=== PATIENT | female | born 1985 | race Caucasian/White ===

== ENCOUNTER 2019-10-19 11:59 | Outpatient (CLI) | payer OTHER, SELFPAY ==
--- NOTE | ~2019-10-19 | MR_ITS ---
EXAMINATION: MR lumbar spine wo con EXAM DATE: 10/19/2019 12:59 INDICATION: Right-sided low back pain, right hip and leg pain. TECHNIQUE: Multi-sequential, multiplanar MR images of the lumbar spine were obtained without contrast . Sagittal T1, T2, T2 fat saturation images. Axial T2 weighted images. There is no prior study for comparison. FINDINGS: There is mild disc disease L5-S1. The vertebral bodies are aligned in the AP dimension. The conus medullaris terminates at the L1/2 level and has normal signal intensity and morphology. There are no suspicious marrow signal abnormalities. Paraspinal soft tissue is unremarkable. Level by level evaluation: T12-L1: Disc does not extend beyond the endplate margin. Facet arthropathy: Mild. Neural foraminal stenosis: No stenosis. Central canal stenosis: No stenosis. L1-L2: Disc does not extend beyond the endplate margin. Facet arthropathy: Mild. Neural foraminal stenosis: No stenosis. Central canal stenosis: No stenosis. L2-L3: Disc does not extend beyond the endplate margin. Facet arthropathy: Mild. Neural foraminal stenosis: No stenosis. Central canal stenosis: No stenosis. L3-L4: There is a minimal diffuse disc bulge. Facet arthropathy: Mild to moderate. Neural foraminal stenosis: Mild right. Central canal stenosis: No stenosis. L4-L5: There is a mild diffuse disc bulge. Facet arthropathy: Mild. Neural foraminal stenosis: Mild bilateral. Central canal stenosis: Minimal. L5-S1: There is a mild diffuse disc bulge. Facet arthropathy: Mild. Neural foraminal stenosis: Mild bilateral. Central canal stenosis: Mild. IMPRESSION: 1. Mild lumbar spondylosis. Reviewed, dictated and finalized at location A. S REPRESENTATIVE PRINTING PAPER IMPRESSION: 1. Mild lumbar spondylosis.
== END 2019-10-19 12:00 ==
PROVIDERS: Visit Provider Nurse Practitioner Family
DX: M54.5 Low back pain (principal); M47.816 Spondylosis without myelopathy or radiculopathy, lumbar region
CPT/HCPCS: 72148

== ENCOUNTER → 2020-10-29 00:19 | Outpatient (CLI) | payer OTHER, SELFPAY ==
[2020-10-29 21:18] LABS: SARS-CoV-2 RNA PCR Negative
== END ==
PROVIDERS: PCP Family Medicine; Visit Provider Obstetrics & Gynecology
DX: Z01.812 Encounter for preprocedural laboratory examination (principal); Z20.822 Contact with and (suspected) exposure to COVID-19
CPT/HCPCS: C9803; U0003; U0005

== ENCOUNTER 2020-10-29 08:42 | Outpatient (CLI) | payer OTHER, SELFPAY ==
[2020-10-29 09:03] LABS: Basophils Percent Auto 0.3 % (0.2-1.2); Eosinophils Absolute Auto 0.1 K/mm3 (0-0.3); Hematocrit 39.1 % (37.0-47.0); Hemoglobin 12.8 g/dL (12.0-15.0); Immature Granulocyte Absolute 0.02 K/mm3 (0.00-0.031); Immature Granulocyte Percent A 0.3 % (0-0.5); Lymphocytes Absolute Auto 1.59 K/mm3 (0.9-3.2); Lymphocytes Percent Auto 23.5 % (18.3-44.2); Mean Corpuscular HGB Conc 32.7 g/dl (32-36); Mean Corpuscular Hemoglobin 31.3 pg (26-34); Mean Corpuscular Volume 95.6 fl (80-100); Mean Platelet Volume 9.6 fl (7.4-10.4); Monocytes Absolute Auto 0.4 K/mm3 (0.1-0.6); Monocytes Percent Auto 6.5 % (2.6-8.5); Neutrophils Absolute Auto 4.6 K/mm3 (1.3-6.7); Neutrophils Percent Auto 68.4 % (45.5-73.1); Platelet Count Result 215 k/mm3 (150-375); Red Blood Count 4.09 M/mm3 (4.2-5.4); Red Cell Distribution Width 12.2 % (11.5-14.5); White Blood Count 6.8 K/mm3 (4.5-10.0)
== END 2020-10-29 08:43 | disposition home or self-care (01) ==
PROVIDERS: PCP Family Medicine; Visit Provider Obstetrics & Gynecology
DX: Z01.818 Encounter for other preprocedural examination (principal); N85.2 Hypertrophy of uterus
CPT/HCPCS: 36415; 85025; 86850; 86900; 86901

== ENCOUNTER 2020-11-01 00:29 | Day surgery (SDC) | payer OTHER, SELFPAY ==
[2020-10-28 13:08] VITALS: BMI 29.3
--- NOTE | 2020-10-30 09:03 | PM.IMHP ---
H&P: HPI History of Present Illness Date/Time: 10/30/20 09:03 Chief Complaint: pain/bleeding Narrative: Zahida Mcmahon is a 35 year old female is admitted for robotic total vaginal hysterectomy and bilateral salpingectomy secondary to dyspareunia and dysmenorrhea which has been refractory to medical therapy. Risks and benefits reviewed including but not exclusive of , aspiration pneumonia, bleeding, transfusion, perforation to bowel, bladder, ureters, or other internal organs with need for laparotomy. She voiced understanding. She received the ACOG handout entitled hysterectomy as well as admitting handout. She had all questions answered. She asked to proceed Review of Systems Review of Systems: All systems reviewed & are unremarkable except as noted in HPI and below PMFSH Past Medical History Medical History History of anxiety History of asthma History of gastroesophageal reflux (GERD) Surgical History Surgical History History of section History of tonsillectomy History of tubal ligation Hx of cholecystectomy Family History Family History Grandparent Hypertension Family history of coronary artery disease Mother Family history of gallbladder disease Other Diabetes mellitus Family history of lung cancer Social History Social History Smoking status: Former smoker Tobacco type: cigarettes Second hand tobacco smoke exposure: No Additional smoking assessment comments: STATES 1PK/2DAYS/<10YRS QUIT 2009 Alcohol intake: current Drinks per week: 7 Substance use: never Substance use type: does not use Gender identity (if verbalized by the patient): Female Spiritual care concerns: No Meds Home Medications and Allergies Home Medications Medication Instructions Recorded Confirmed Type albuterol sulfate 90 mcg/actuation 2 puff INHALATION Q4H PRN gm 07/18/19 10/28/20 History aerosol inhaler duloxetine 60 mg capsule,delayed 60 mg PO DAILY #30 cap 07/24/20 10/28/20 Rx release Allergies Allergy/AdvReac Type Severity Reaction Status Date / Time tetanus and diphtheria AdvReac Unknown localized Verified 10/28/20 13:06 toxoids swelling reaction Exam Const: General: no acute distress Eyes: General: appearance normal, both eyes and all related structures Neck: Neck: supple and no JVD Thyroid: thyroid normal Resp: Effort & Inspection: normal respiratory effort Auscultation: clear to auscultation bilaterally Cardio: Rate: regular rate Rhythm: regular rhythm GI: Inspection: non-distended GI Palp: Yes Soft to palpation, No Tenderness to palpation present (GI) and No Guarding due to palpation present (GI) Auscultation: normal bowel sounds : General: Yes bladder normal to inspection External Female Exam: normal external appearance Speculum Exam - Vagina: normal appearance of the vagina Speculum Exam - Cervix: normal appearance of the cervix Bimanual exam- vagina & uterus: enlarged and Uterine tenderness Skin: General skin exam: no rashes or lesions noted Extrem: General: normal to inspection and no edema Psych: Mental Status: mental status grossly normal Affect: normal affect Assessment and Plan Additional Plan impression: Enlarged uterus and pelvic pain with dyspareunia Plan: Robotic total vaginal hysterectomy and bilateral salpingectomy
[2020-11-01] VITALS (12 sets, daily range): BP systolic 99–121; BP diastolic 56–80; PULSE 60–115; RESP 12–18; TEMP 36.1–36.7; O2SAT 94–100
[2020-11-01] MEDS: CALCIUM CARBONATE (TUMS) 500 MG (200 MG ELEMENTAL) (06:20)
[2020-11-01] MEDS: ACETAMINOPHEN 500 MG TABLET 1000 MG PO (06:40)
[2020-11-01] MEDS: KETOROLAC 15 MG/ML VIAL (*BKC) IV PUSH (06:40)
--- NOTE | 2020-11-01 06:46 | WPDHPUPDATE1 ---
History and Physical Update Update Date/Time: 11/01/20 06:46 History and Physical has been reviewed, including an updated exam of the patient. There are NO changes in the patient's condition. Risks, benefits, and alternatives have been discussed and questions answered. Patient agrees to proceed with procedure.
[2020-11-01] MEDS: LACTATED RINGERS 1,000 ML 30 ML IV CONT ×2 (06:48→08:46)
[2020-11-01] MEDS: SCOPOLAMINE 1.5 MG PATCH TRANSDERM (07:16)
[2020-11-01] MEDS: ceFAZolin 2 GM/D5W 50 ML 2 GM/50 ML BAG IVPB (07:21)
--- NOTE | 2020-11-01 08:30 | PM.PROC ---
Procedure Note - Detailed Date of procedure: 11/01/20 Pre-op diagnosis: Irregular Bleeding, Enlarged Uterus Surgeon: Fahad Santa MD Postop diagnosis: Irregular bleeding/enlarged uterus Procedure: Robotic total vaginal hysterectomy and bilateral salpingectomy EBL: 25cc Anesthesia: General endotracheal Findings: Enlarged irregular uterus. Normal-appearing ovaries bilaterally. Tubes status post tubal ligation. Complications: None Description of procedure: The patient was prepped and draped in the normal sterile fashion placed in the dorsal lithotomy position. Under excellent general endotracheal anesthesia weighted speculum was placed in posterior fornix of vagina. Anterior lip of the cervix was grasped with a single-tooth tenaculum. Uterus sounded to 12cm. The 10. ABDIAS and the 3. And a half cold cup were then placed on the cervix and the uterus. A 16 Maldivian catheter was placed in the bladder and drained of clear urine. The weighted speculum was removed and the gloves were changed. A supraumbilical incision made in the Veress needle passed in the abdomen. The abdomen was filled with CO2 gas [id number]. The 8mm trocar advanced in the abdomen. The downside visualized and no injury seen. Patient placed in Trendelenburg and right and left lateral quadrant incisions made. 8mm trocars were advanced under direct visualization assuring injury. A right upper quadrant incision made the 8mm trocar advanced under direct visualization assuring injury. The robot was docked. Attention was turned to the tariff counsel. The left round ligament was grasped, burned, cut. Anteriorly the bladder was reflected caudally by sharply dissecting the peritoneum over the cervix and uterus and reflecting the bladder caudally to the opposite round ligament which was clamped, burned, cut. Next the left fallopian tube was sharply dissected using monopolar cautery until it reached the base of its entrance in the uterus this was repeated to remove the right fallopian tube. The left utero-ovarian ligament was skeletonized to conserve the left ovary clamped, burned, cut and brought to the level of the previously cut round ligament. Conserving the right ovary the utero-ovarian ligament was clamped, burned, cut and brought to the level of the previously cut round ligament. The left cardinal and broad ligaments were then serially skeletonized down the lateral edge of the uterus clamping burning cutting until the uterine vessels could be seen. These were individually clamped, burned, cut and noted to be large and tortuous. In like fashion the cardinal and broad ligaments on the right were serially skeletonized. These were clamped, burned, cut and brought down the lateral edge of the uterus until the uterine vessels on the right could be seen. These were then individually clamped, burned, cut. Blanching the uterus was seen in a colpotomy incision was made. Cervix uterus and tubes removed through the vagina. The vagina closed with continuous running 0V lock from lateral edge to lateral edge back to the midline. Irrigation undertaken to clear and the raw spaced sprinkled with hematuria. Blood loss estimated at25cc and all pedicles appeared dry. The robot was undocked. The gas removed from the abdomen. The trocar sites removed and the incisions closed with 4 O Monocryl and glue. The patient was awakened. All sponge, needle, instrument counts were correct. There were no immediate complications
[2020-11-01] MEDS: fentaNYL CITRATE INJ (*CRX) 100 MCG/2 ML VIAL 25 MCG IV PUSH ×8 (08:57→10:29)
[2020-11-01] MEDS: HYDROmorphone HCL INJ (*CRX) 1 MG/ML SYR 0.5 MG IV PUSH ×6 (09:33→10:23)
--- NOTE | 2020-11-01 10:44 | PC.NURSE ---
This patient, Zahida Mcmahon, was received from PACU on 11/01/20 at 1044. Patient/family oriented to unit policies and routines
[2020-11-01] MEDS: DEXTROSE 5%/LACTATED RINGERS 1,000 ML 125 ML IV CONT ×2 (11:09→19:09)
[2020-11-01] MEDS: MORPHINE SULFATE (*CRX) 4 MG/ML INJ IV PUSH ×2 (11:09→19:10)
[2020-11-01] MEDS: ONDANSETRON INJ 4 MG/2 ML VIAL IV PUSH ×2 (11:44→19:09)
[2020-11-01] MEDS: KETOROLAC 30 MG/ML VIAL (*BKC) IV PUSH (15:47)
[2020-11-01] MEDS: TEMAZEPAM (*CRX) 15 MG CAPSULE PO (19:34)
[2020-11-01] MEDS: SIMETHICONE 80 MG TAB.CHEW PO (19:56)
[2020-11-02] MEDS: KETOROLAC 30 MG/ML VIAL (*BKC) IV PUSH (01:12)
[2020-11-02 01:15] VITALS: BP 95/55; PULSE 83; RESP 18; TEMP 36.1; O2SAT 100
[2020-11-02] MEDS: diphenhydrAMINE HCl CAP 25 MG CAPSULE PO ×2 (01:34→09:12)
[2020-11-02 05:00] VITALS: BP 88/50; PULSE 90; RESP 18; TEMP 36.3; O2SAT 100
[2020-11-02 05:12] LABS: Basophils Percent Auto 0.2 % (0.2-1.2); Eosinophils Percent Auto 0.2 % (0-4.4); Hemoglobin 11.3 g/dL (12.0-15.0); Immature Granulocyte Absolute 0.06 K/mm3 (0.00-0.031); Immature Granulocyte Percent A 0.5 % (0-0.5); Lymphocytes Absolute Auto 2.13 K/mm3 (0.9-3.2); Lymphocytes Percent Auto 17.5 % (18.3-44.2); Mean Corpuscular HGB Conc 32.3 g/dl (32-36); Mean Corpuscular Hemoglobin 30.2 pg (26-34); Mean Corpuscular Volume 93.6 fl (80-100); Mean Platelet Volume 9.7 fl (7.4-10.4); Monocytes Absolute Auto 0.6 K/mm3 (0.1-0.6); Monocytes Percent Auto 4.5 % (2.6-8.5); Neutrophils Absolute Auto 9.4 K/mm3 (1.3-6.7); Neutrophils Percent Auto 77.1 % (45.5-73.1); Platelet Count Result 177 k/mm3 (150-375); Red Blood Count 3.74 M/mm3 (4.2-5.4); Red Cell Distribution Width 11.9 % (11.5-14.5); White Blood Count 12.2 K/mm3 (4.5-10.0)
[2020-11-02 06:30] VITALS: BP 95/48; PULSE 70; RESP 16; TEMP 36.3; O2SAT 100
[2020-11-02] MEDS: SIMETHICONE 80 MG TAB.CHEW PO (06:37)
[2020-11-02] MEDS: IBUPROFEN 600 MG TABLET PO (06:37)
[2020-11-02] MEDS: DOCUSATE SODIUM 100 MG CAPSULE PO (06:37)
[2020-11-02] MEDS: ENOXAPARIN 40 MG/0.4 ML SYRINGE SUB-Q (06:37)
[2020-11-02] MEDS: HYDROcodone/acetaminophen (*CRX) 10-325 MG TABLET 1 TAB PO (06:38)
--- NOTE | 2020-11-02 07:18 | P.PNOB_ITS ---
OB - PN: Subj Subjective Date/time seen: 11/02/20 07:18 Patient comments: no complaints and pain well controlled OB - PN: Obj Data Labs CBC & Chem 7: 11/02/20 05:04 Labs: Laboratory Results - last 24 hr 11/02/20 05:04 WBC 12.2 H RBC 3.74 L Hgb 11.3 L Hct 35.0 L MCV 93.6 MCH 30.2 MCHC 32.3 RDW 11.9 Plt Count 177 MPV 9.7 Immature Gran % (Auto) 0.5 Neut % (Auto) 77.1 H Lymph % (Auto) 17.5 L [place] % (Auto) 4.5 Eos % (Auto) 0.2 Baso % (Auto) 0.2 Lymph # (Auto) 2.13 [place] # (Auto) 0.6 Eos # (Auto) 0.0 Baso # (Auto) 0.0 Abs Immat Gran (auto) 0.06 H Absolute Neuts (auto) 9.4 H Absolute Nucleated RBC 0.0 Nucleated RBC % 0.0 OB - PN A/P Plan day: 1 Plan: discharge home and follow up 6 weeks (2 weeks) Time Spent With Patient Time: Total time spent is greater than 50% in coordination of care (as documented) at patient's floor/unit and/or counseling patient: Time with patient: less than 15 minutes Review of Systems Review of Systems: All systems reviewed & are unremarkable except as noted in HPI and below Exam Const: General: no acute distress Eyes: General: appearance normal, both eyes and all related structures Neck: Neck: supple and no JVD Thyroid: thyroid normal Resp: Effort & Inspection: normal respiratory effort Auscultation: clear to auscultation bilaterally Cardio: Rate: regular rate Rhythm: regular rhythm GI: Inspection: normal to inspection and incision (all cdi) : General: Yes bladder normal to palpation External Female Exam: normal external appearance Speculum Exam - Vagina: normal vaginal discharge and No vaginal bleeding Speculum Exam - Cervix: nontender Bimanual exam- vagina & uterus: bladder normal to palpation and No Cervical tenderness present OB/external & speculum: No vaginal bleeding Skin: General skin exam: no rashes or lesions noted Extrem: General: normal to inspection and no edema Psych: Mental Status: mental status grossly normal Affect: normal affect
--- NOTE | 2020-11-02 07:19 | PM.DS ---
DS: Admitting Diagnosis Admitting Diagnosis Admitting Diagnosis: enlarged uterus/pain/bleeding DS: Summary Hospital Course Hospital Course: The patient was admitted for robotic total vaginal hysterectomy and bilateral salpingectomy. Her hospital course was unremarkable. She remained afebrile. She was up, voiding without difficulty, ambulating, eating, and generally without complaints. Time Spent with Patient Time attestation: Total time spent providing and/or coordinating discharge services: Exam Const: General: no acute distress Eyes: General: appearance normal, both eyes and all related structures Neck: Neck: supple and no JVD Thyroid: thyroid normal Resp: Effort & Inspection: normal respiratory effort Auscultation: clear to auscultation bilaterally Cardio: Rate: regular rate Rhythm: regular rhythm GI: Inspection: non-distended GI Palp: Yes Soft to palpation, No Tenderness to palpation present (GI) and No Guarding due to palpation present (GI) Auscultation: normal bowel sounds : General: Yes bladder normal to palpation External Female Exam: normal external appearance Speculum Exam - Vagina: normal vaginal discharge and No vaginal bleeding Speculum Exam - Cervix: nontender Bimanual exam- vagina & uterus: bladder normal to palpation and No Cervical tenderness present OB/external & speculum: No vaginal bleeding Skin: General skin exam: no rashes or lesions noted Extrem: General: normal to inspection and no edema Psych: Mental Status: mental status grossly normal Affect: normal affect DS: Data Data Completed and Pending Pending studies at discharge: Pending at discharge 11/01/20 08:13 Surgical [PTH] Routine Labs on day of discharge: Labs from last 24 hours 11/02/20 05:04 WBC 12.2 H RBC 3.74 L Hgb 11.3 L Hct 35.0 L MCV 93.6 MCH 30.2 MCHC 32.3 RDW 11.9 Plt Count 177 MPV 9.7 Immature Gran % (Auto) 0.5 Neut % (Auto) 77.1 H Lymph % (Auto) 17.5 L [place] % (Auto) 4.5 Eos % (Auto) 0.2 Baso % (Auto) 0.2 Lymph # (Auto) 2.13 [place] # (Auto) 0.6 Eos # (Auto) 0.0 Baso # (Auto) 0.0 Abs Immat Gran (auto) 0.06 H Absolute Neuts (auto) 9.4 H Absolute Nucleated RBC 0.0 Nucleated RBC % 0.0 Discharge Plan Discharge Patient Disposition: Home, Self-Care Stand Alone Forms: General Discharge Instructions Follow-up/Referrals: Fahad Santa MD [Physician] - Discharge Medications: New hydrocodone-acetaminophen 5-300 mg tablet 1 tablet PO Q6H PRN (Reason: pain) Qty: 30 RF: 0 Continued albuterol sulfate [Ventolin HFA] 90 mcg/actuation HFA aerosol inhaler 2 puff INHALATION Q4H PRN (Reason: Shortness Of Breath Or Wheezing) RF: 0 duloxetine [Cymbalta] 60 mg capsule,delayed release(DR/EC) 60 mg PO DAILY Qty: 30 RF: 3
[2020-11-02] MEDS: ALBUTEROL SULFATE (*SP) AEROSOL 1 PUFF 2 PUFF INHALATION (08:30)
--- NOTE | 2020-11-02 10:19 | P.PNAN_ITS ---
Anes - Prog Note Post-Op Date/Time: 11/02/20 10:19 Cardiovascular status: normal Respiratory status: normal Airway patency: baseline Mental status: baseline Post-Op hydration status: normal Vital Signs: Last Vital Signs Temp 36.3 C L 11/02/20 06:30 Pulse 70 11/02/20 06:30 Resp 16 11/02/20 06:30 BP 95/48 L 11/02/20 06:30 Pulse Ox 100 11/02/20 06:30 Pain Score (VAS): 0 I/O: Intake & Output 11/01/20 11/02/20 11/02/20 23:59 07:59 15:59 Intake Total 1440 1600 Output Total 400 2300 400 Balance 1040 -700 -400 Laboratory Tests 11/02/20 05:04 11/02/20 05:04 WBC 12.2 H RBC 3.74 L Hgb 11.3 L Hct 35.0 L MCV 93.6 MCH 30.2 MCHC 32.3 RDW 11.9 Plt Count 177 MPV 9.7 Immature Gran % (Auto) 0.5 Neut % (Auto) 77.1 H Lymph % (Auto) 17.5 L [place] % (Auto) 4.5 Eos % (Auto) 0.2 Baso % (Auto) 0.2 Lymph # (Auto) 2.13 [place] # (Auto) 0.6 Eos # (Auto) 0.0 Baso # (Auto) 0.0 Abs Immat Gran (auto) 0.06 H Absolute Neuts (auto) 9.4 H Absolute Nucleated RBC 0.0 Nucleated RBC % 0.0 Post-procedural complaints: none Patient Feedback: Patient satisfied with anesthetic care.
== END 2020-11-02 10:20 | disposition home or self-care (01) ==
LOC: ANHSURGERY 07:52 → ANHOB2 10:52
PROVIDERS: PCP Family Medicine; Visit Provider Obstetrics & Gynecology
PROC: (CPT 58552; principal; 2020-11-01 07:30)
DX: N80.0 Endometriosis of uterus (principal); N83.8 Other noninflammatory disorders of ovary, fallopian tube and broad ligament; N93.9 Abnormal uterine and vaginal bleeding, unspecified; F41.9 Anxiety disorder, unspecified; J45.909 Unspecified asthma, uncomplicated; K21.9 Gastro-esophageal reflux disease without esophagitis; R10.2 Pelvic and perineal pain; Z79.51 Long term (current) use of inhaled steroids; N94.10 Unspecified dyspareunia; Z87.891 Personal history of nicotine dependence
CPT/HCPCS: 58552; S2900; 36415; 85025; 86850; 86900; 86901; 88307; 94640; 99199; A9270; C9803; J0690; J1100; J1170; J1650; J1885; J2250; J2270; J2405; J2704; J2710; J3010; J7030; J7120; J7121; U0003; U0005

== ENCOUNTER 2020-12-26 15:46 | Outpatient (CLI) | payer OTHER, SELFPAY | END 2020-12-26 15:47 | disposition home or self-care (01) | LOC: ANHCOVIDVC 15:47 | PROVIDERS: PCP Family Medicine | DX: Z23 Encounter for immunization (principal) | CPT/HCPCS: 0001A; 91300 ==

== ENCOUNTER 2021-01-16 15:46 | Outpatient (CLI) | payer OTHER, SELFPAY | END 2021-01-16 15:47 | disposition home or self-care (01) | LOC: ANHCOVIDVC 15:46 | PROVIDERS: PCP Family Medicine | DX: Z23 Encounter for immunization (principal) | CPT/HCPCS: 0002A; 91300 ==

== ENCOUNTER 2023-06-23 08:35 | Outpatient (CLI) | payer OTHER, SELFPAY ==
[2023-06-23 09:12] LABS: Anion Gap 4 mmol/L (8-16); Blood Urea Nitrogen 12 mg/dL (7-17); Calcium 8.6 mg/dL (8.4-10.2); Carbon Dioxide 28 mmol/L (22-30); Chloride 102 mmol/L (98-107); Cholesterol 180 mg/dL (0-200); Estimated Glomerular Filt Rate > 60; Glucose 92 mg/dL (65-110); HDL Direct 60 mg/dL; Potassium 4.3 mmol/L (3.4-5.0); Sodium 134 mmol/L (137-145); Triglycerides 61 mg/dL (<150)
[2023-06-23 09:22] LABS: LDL Cholesterol Direct 96 mg/dL
== END 2023-06-23 08:36 | disposition home or self-care (01) ==
LOC: ANHLAB 08:36
PROVIDERS: PCP Family Medicine; Visit Provider Nurse Practitioner Family
DX: Z13.220 Encounter for screening for lipoid disorders (principal); F41.9 Anxiety disorder, unspecified; K58.9 Irritable bowel syndrome, unspecified
CPT/HCPCS: 36415; 80048; 80061; 84443

== ENCOUNTER 2023-11-25 10:38 | Emergency (ER) | payer OTHER, SELFPAY ==
[2023-11-25 11:29] VITALS: BP 121/81; PULSE 72; RESP 14; TEMP 36.4; O2SAT 100
--- NOTE | 2023-11-25 12:23 | ED.ABDPAIN ---
HPI - Abdominal Pain General Chief Complaint: Abdominal Pain <Dilan Huynh APRN - Last Filed: 11/25/23 12:36> Stated Complaint: ABDOMINAL PAIN SINCE 929 HX IBS <Dilan Huynh APRN - Last Filed: 11/25/23 12:36> Time Seen by Provider: 11/25/23 12:23 <Dilan Huynh APRN - Last Filed: 11/25/23 12:36> Focused HPI: Zahida is a 38-year-old female patient presenting to the emergency room today with complaints sharp/stabbing pain of mid/lower abdominal and is radiating into her groin. She reports that she does have a history of some IBS and believe she is having a severe IBS flare. States the IBS is mixed. Last colonoscopy was about 10 years ago and was normal at that time. Denies any blood in her stool. Denies any fever, chills, nausea, vomiting, or urinary symptoms. She reports she is pain-free at this time but the pain comes and goes in waves and rates the pain over a 10. Last bowel movement was yesterday-no blood in her stool. Denies any history kidney stones. History of hemorrhoids. surgical history-partial hysterectomy and cholecystectomy General: Well-developed, well nourished, in no apparent distress. Head: Normocephalic, atraumatic. Cardio: Regular rate and rhythm, s1 and s2 normal, no murmur appreciated. Resp: Clear to auscultation bilaterally, no rhonchi, rales, wheezing or rubs. Abdomen: Soft, pliable, bowel sounds present in all quadrants, tender to palpation over the mid/lower abdomen, no organomegly, no CVAT tenderness. Patient screened in triage and initial orders placed. Additional care and disposition to be based upon diagnostic testing and treatment. <Dilan Huynh APRN - Last Filed: 11/25/23 12:36> Source: patient <Dilan Huynh APRN - Last Filed: 11/25/23 12:36> Mode of arrival: ambulatory <Dilan Huynh APRN - Last Filed: 11/25/23 12:36> Limitations: no limitations <Dilan Huynh APRN - Last Filed: 11/25/23 12:36> History of Present Illness HPI narrative: Patient is a 38-year-old female with history of IBS here with abdominal pain. 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 She states that it felt similar to her prior episodes of IBS. She notes that it was severe, cramping, sharp, nonradiating and located in her lower abdomen. She attempted her dicyclomine which did not help her pain as well as a heating pad. Given her inability to help her symptoms on her own she came into the emergency department for evaluation. Since arrival to the ER her pain is significantly improved. She has intermittent diarrhea and constipation with her IBS, did have a bowel movement today which was firm. She continues to pass flatulence. No fever, chills. No urinary symptoms. Last colonoscopy was about 10 years ago and normal. <Cira Siddiqi MD - Last Filed: 11/25/23 17:55> Related Data Allergies/Adverse Reactions: Allergies Allergy/AdvReac Type Severity Reaction Status Date / Time tetanus and diphtheria AdvReac Unknown localized Verified 11/25/23 11:31 toxoids swelling reaction <Dilan Huynh APRN - Last Filed: 11/25/23 12:36> Review of Systems Review of Systems: All systems reviewed & are unremarkable except as noted in HPI and below <Cira Siddiqi MD - Last Filed: 11/25/23 17:55> PMFSH Past Medical History Medical History: Medical History BMI 25.0-25.9,adult BMI 26.0-26.9,adult BMI 29.0-29.9,adult History of anxiety History of asthma History of gastroesophageal reflux (GERD) Obesity (BMI 30.0-34.9) <Dilan Huynh APRN - Last Filed: 11/25/23 12:36> Surgical History Surgical History: Surgical History History of section History of tonsillectomy History of tubal ligation Hx of cholec
[2023-11-25 13:02] LABS: Alanine Aminotransferase 17 U/L (6-35); Albumin Level 4.6 g/dL (3.5-5.1); Alkaline Phosphatase 57 U/L (38-126); Anion Gap 5 mmol/L (8-16); Aspartate Amino Transferase 21 U/L (14-36); Bilirubin,Total 0.7 mg/dL (0.2-1.3); Blood Urea Nitrogen 15 mg/dL (7-17); Calcium 9.4 mg/dL (8.4-10.2); Carbon Dioxide 25 mmol/L (22-30); Chloride 105 mmol/L (98-107); Estimated CRCL calculation 96 ml/min; Estimated Glomerular Filt Rate > 60; Glucose 77 mg/dL (65-110); Lipase 62 U/L (23-300); Potassium 3.8 mmol/L (3.4-5.0); Sodium 135 mmol/L (137-145)
[2023-11-25 13:07] LABS: Basophils Percent Auto 0.4 % (0.2-1.2); Eosinophils Absolute Auto 0.1 K/mm3 (0-0.3); Eosinophils Percent Auto 0.7 % (0-4.4); Hematocrit 41.5 % (37.0-47.0); Hemoglobin 13.5 g/dL (12.0-15.0); Immature Granulocyte Absolute 0.03 K/mm3 (0.00-0.031); Immature Granulocyte Percent A 0.4 % (0-0.5); Lymphocytes Absolute Auto 2.06 K/mm3 (0.9-3.2); Lymphocytes Percent Auto 24.2 % (18.3-44.2); Mean Corpuscular HGB Conc 32.5 g/dl (32-36); Mean Corpuscular Hemoglobin 31.5 pg (26-34); Mean Platelet Volume 9.9 fl (7.4-10.4); Monocytes Absolute Auto 0.3 K/mm3 (0.1-0.6); Monocytes Percent Auto 3.8 % (2.6-8.5); Neutrophils Percent Auto 70.5 % (45.5-73.1); Platelet Count Result 206 k/mm3 (150-375); Red Blood Count 4.28 M/mm3 (4.2-5.4); Red Cell Distribution Width 11.9 % (11.5-14.5); White Blood Count 8.5 K/mm3 (4.5-10.0)
[2023-11-25 15:36] LABS: Appearance Urine Clear (Clear); Bilirubin Urine Negative (Negative); Blood Urine Negative (Negative); Color Urine Yellow (Yellow); Glucose Urine UA Negative (Negative); Ketones Urine 1+ mg/dL (Negative); Leukocyte Esterase Ur Negative LEU/UL (Negative); Nitrate Urine Negative (Negative); Protein Urine Negative (Negative); Specific Grav Ur 1.017 (1.001-1.035); Urobilinogen Urine 0.2 mg/dL (<2.0); pH Urine 5.5 (5.0-9.0)
[2023-11-25 15:43] LABS: Add Urine Microscopic? NO
[2023-11-25 15:49] VITALS: BP 115/64; PULSE 76; RESP 18; TEMP 36.6; O2SAT 100
--- NOTE | 2023-11-25 17:02 | PC.NURSE ---
Pt has had hysterectomy
[2023-11-25] MEDS: ONDANSETRON HCL ODT 4 MG TABLET PO (17:54)
[2023-11-25 18:10] VITALS: BP 120/80; PULSE 80; RESP 18; TEMP 36.4; O2SAT 100
== END 2023-11-25 18:12 | disposition home or self-care (01) ==
PROVIDERS: Nurse Practitioner Family; Emergency Provider Student in an Organized Health Care Education/Training Program; PCP Family Medicine
DX: R10.30 Lower abdominal pain, unspecified (principal); J45.909 Unspecified asthma, uncomplicated; K21.9 Gastro-esophageal reflux disease without esophagitis; E66.9 Obesity, unspecified; Z68.27 Body mass index [BMI] 27.0-27.9, adult; Z87.891 Personal history of nicotine dependence; Z90.49 Acquired absence of other specified parts of digestive tract
CPT/HCPCS: 36415; 80053; 83690; 85025; 99283; A9270

== ENCOUNTER 2024-02-06 00:16 | Emergency (ER) | payer OTHER, SELFPAY ==
[2024-02-06] VITALS (7 sets, daily range): BP systolic 121–127; BP diastolic 68–78; PULSE 88–115; RESP 10–37; TEMP 36.6; O2SAT 99–100
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
--- NOTE | 2024-02-06 00:50 | ECG_ITS ---
SEE SCANNED COPY FOR CONFIRMED REPORT MTDD
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
[2024-02-06] MEDS: KETOROLAC 30 MG/ML VIAL (*BKC) 15 MG IM (02:36)
[2024-02-06] MEDS: methocarbamoL 750 MG TABLET PO (02:36)
[2024-02-06] MEDS: ACETAMINOPHEN 500 MG TABLET 1000 MG PO (02:36)
== END 2024-02-06 04:12 | disposition home or self-care (01) ==
PROVIDERS: Emergency Provider Student in an Organized Health Care Education/Training Program; PCP Family Medicine
DX: S16.1XXA Strain of muscle, fascia and tendon at neck level, initial encounter (principal); R00.0 Tachycardia, unspecified; F41.9 Anxiety disorder, unspecified; J45.909 Unspecified asthma, uncomplicated; K21.9 Gastro-esophageal reflux disease without esophagitis; W06.XXXA Fall from bed, initial encounter
CPT/HCPCS: 70450; 72125; 81025; 93005; 96372; 99284; A9270; J1885

== ENCOUNTER 2024-05-03 06:52 | Emergency (ER) | payer OTHER, SELFPAY ==
--- NOTE | ~2024-05-03 | XR_ITS ---
EXAMINATION: XR chest 1V DATE: 05/03/2024 07:59 INDICATION: Chest pain. Shortness of breath. TECHNIQUE: A single frontal view of the chest was obtained. COMPARISON: Chest single view 02/26/2021 FINDINGS: There is no pneumonia, pleural effusion, or pneumothorax. The heart is normal. IMPRESSION: 1. No acute cardiopulmonary disease. Reviewed, dictated and finalized at location A.
[2024-05-03 06:59] VITALS: BP 127/80; PULSE 77; RESP 12; TEMP 36.7; O2SAT 100
--- NOTE | 2024-05-03 07:12 | ED.ANXIETY ---
HPI - Anxiety General Chief Complaint: Anxiety Stated Complaint: under a lot of stress, hand feet tingling,dizzy,cp Time Seen by Provider: 05/03/24 07:00 Source: patient and family Mode of arrival: ambulatory Limitations: no limitations History of Present Illness HPI narrative: Patient presents with multiple complaints. She is concerned it is a worsening of her underlying anxiety. She has had a history of anxiety and depression for several years. Her anxiety medications are Ativan and Vibryyd which are prescribed through her PCP's office (Dr Lantigua's STEAMFITTER APPRENTICE/PA, Cherise). She lives with family but they do not have symptoms. Her symptoms have been going on for 3 or 4 weeks. They have been noted in her bilateral hands where she will wake up and feel like they are numb it is not always the same hand. She does have a narrowing of her field of vision sometimes when this happens. She has been under stress with her job. She has an occasional cough but she attributes this to asthma for which she uses an albuterol inhaler p.r.n.. No fevers. She has been experiencing chest pain described as a tightness particularly along the upper aspect of her chest. She also has a headache. She has nausea and had an episode of vomiting this morning. She finds it hard to calm down. She states her symptoms are not associated shortness of breath. She has some blue discoloration around her left eye but denies any trauma rest at or injury rather stating that this is a chronic baseline discoloration of her skin. She notes her legs feel heavy. Related Data Allergies Allergy/AdvReac Type Severity Reaction Status Date / Time tetanus and diphtheria AdvReac Unknown localized Verified 05/03/24 07:05 toxoids swelling reaction PMFSH Past Medical History Medical History Anxiety Brain fog Depression Encounter for screening for lipid disorder Fatigue History of asthma History of gastroesophageal reflux (GERD) Surgical History Surgical History History of section History of tonsillectomy History of tubal ligation Hx of cholecystectomy Family History Family History Grandparent Hypertension Family history of coronary artery disease Mother Family history of gallbladder disease Father No problems noted. Sibling No problems noted. Other Diabetes mellitus Family history of lung cancer Social History Social History Smoking status: Former smoker Tobacco type: cigarettes Second hand tobacco smoke exposure: No Additional smoking assessment comments: STATES 1PK/2DAYS/<10YRS QUIT 2009 Alcohol intake: current Drinks per week: 7 Substance use: never Substance use type: does not use Lack of Transportation: No Lack of Food: Never True Current Housing: I Have Housing Concerned About Future Housing: No Difficulty Paying Gas/Electric Bills: No Difficulty Paying for Meds: No Currently Unemployed: No Education: Bachelor's Degree Difficulty w/ Childcare or Family Care: No Living arrangements: with family Additional living arrangements comments: , daughter, and son Occupation/Education: occupation Additional occupation/education comments: [employer] Gender identity (if verbalized by the patient): Female Spiritual care concerns: No Exam Narrative: GENERAL: Well-appearing, well-nourished, and in no acute distress. HEAD: Normocephalic, atraumatic. EYES: Non injected, non icteric. Faint bluish discoloration are round left periorbital area. ENT: Nares clear, no rhinorrhea or epistaxis. NECK: Supple. CHEST: Speaking in full sentences. No respiratory distress. Lungs clear to auscultation bilaterally without wheezes, crackles. HEART: Regular r
--- NOTE | 2024-05-03 07:13 | ECG_ITS ---
Test Date: 2024-05-03 07:41:47 Measurements Intervals [place] Rate: 76 P: 26 MI: 116 QRS: 62 QRSD: 82 T: 41 QT: 391 QTc: 440 Interpretive Statements SINUS RHYTHM WITH SHORT MI INTERVAL No previous ECG available for comparison Electronically Signed On 05-03-2024 16:02:48 CDT by Tal Dozier M.D.
[2024-05-03] MEDS: ACETAMINOPHEN 500 MG TABLET 1000 MG PO (07:39)
[2024-05-03] MEDS: ONDANSETRON HCL ODT 4 MG TABLET PO (07:39)
[2024-05-03 07:56] LABS: Basophils Percent Auto 0.5 % (0.2-1.2); Eosinophils Absolute Auto 0.1 K/mm3 (0-0.3); Eosinophils Percent Auto 1.1 % (0-4.4); Hematocrit 38.7 % (37.0-47.0); Hemoglobin 12.8 g/dL (12.0-15.0); Immature Granulocyte Absolute 0.01 K/mm3 (0.00-0.031); Immature Granulocyte Percent A 0.2 % (0-0.5); Lymphocytes Absolute Auto 1.44 K/mm3 (0.9-3.2); Mean Corpuscular HGB Conc 33.1 g/dl (32-36); Mean Corpuscular Hemoglobin 32.3 pg (26-34); Mean Corpuscular Volume 97.7 fl (80-100); Monocytes Absolute Auto 0.4 K/mm3 (0.1-0.6); Monocytes Percent Auto 5.8 % (2.6-8.5); Neutrophils Absolute Auto 4.3 K/mm3 (1.3-6.7); Neutrophils Percent Auto 69.4 % (45.5-73.1); Platelet Count Result 195 k/mm3 (150-375); Red Blood Count 3.96 M/mm3 (4.2-5.4); Red Cell Distribution Width 12.4 % (11.5-14.5); White Blood Count 6.3 K/mm3 (4.5-10.0)
[2024-05-03 08:06] LABS: Alanine Aminotransferase 16 U/L (6-35); Albumin Level 4.2 g/dL (3.5-5.1); Alkaline Phosphatase 65 U/L (38-126); Anion Gap 7 mmol/L (4-12); Aspartate Amino Transferase 22 U/L (14-36); Bilirubin,Total 0.7 mg/dL (0.2-1.3); Blood Urea Nitrogen 14 mg/dL (7-17); Calcium 8.8 mg/dL (8.4-10.2); Carbon Dioxide 28 mmol/L (22-30); Chloride 101 mmol/L (98-107); Creatine Kinase 36 U/L (30-135); Estimated CRCL calculation 74 ml/min; Estimated Glomerular Filt Rate > 60; Glucose 97 mg/dL (65-110); Potassium 4.1 mmol/L (3.4-5.0); Sodium 136 mmol/L (137-145)
--- NOTE | 2024-05-03 08:06 | PC.NURSE ---
per request of EDP provider, took pt to XRAY alone to ask and make sure pt is safe at home and if there is anything she would like to talk about. pt states she feels safe at home and no other concerns she would like to speak about.
[2024-05-03 08:12] VITALS: BP 115/70; PULSE 75; RESP 12; O2SAT 100
[2024-05-03 08:23] LABS: Influenza A QL RT-PCR Negative (Negative); Influenza B QL RT-PCR Negative (Negative); RSV RNA, RT-PCR Negative (Negative); SARS-CoV-2 RNA PCR Negative (Negative)
[2024-05-03] MEDS: KETOROLAC 30 MG/ML VIAL (*BKC) 15 MG IM (08:49)
[2024-05-03] MEDS: diphenhydrAMINE HCl CAP 25 MG CAPSULE PO (08:49)
[2024-05-03] MEDS: PROCHLORPERAZINE MALEATE 5 MG TABLET PO (08:55)
[2024-05-03 09:24] VITALS: BP 108/70; PULSE 80; RESP 18; O2SAT 100
[2024-05-03 09:26] LABS: Amphetamine Screen Urine Negative (Negative); Barbiturate Screen Urine Negative (Negative); Benzodiazepines Screen Urine Negative (Negative); Cannabinoid Screen Urine Negative (Negative); Cocaine Screen Urine Negative (Negative); Methadone Screen Urine Negative (Negative); Opiate Screen Urine Negative (Negative); Phencyclidine Screen Urine Negative (Negative)
[2024-05-03] MEDS: MORPHINE SULFATE INJ (*CRX) 10 MG/ML AMP 4 MG IM (09:45)
[2024-05-03 10:39] VITALS: BP 116/66; PULSE 87; RESP 19; TEMP 36.6; O2SAT 99
== END 2024-05-03 10:41 | disposition home or self-care (01) ==
PROVIDERS: Emergency Provider Student in an Organized Health Care Education/Training Program; PCP Family Medicine
DX: F41.9 Anxiety disorder, unspecified (principal); R51.9 Headache, unspecified; R07.89 Other chest pain; Z20.822 Contact with and (suspected) exposure to COVID-19; J45.909 Unspecified asthma, uncomplicated; K21.9 Gastro-esophageal reflux disease without esophagitis; F32.A Depression, unspecified; Z90.49 Acquired absence of other specified parts of digestive tract; Z87.891 Personal history of nicotine dependence; Z79.899 Other long term (current) drug therapy
CPT/HCPCS: 36415; 71045; 80053; 80307; 82550; 83735; 85025; 87637; 93005; 96372; 99284; A9270; J1885; J2270

== ENCOUNTER 2024-05-26 12:26 | Outpatient (CLI) | payer OTHER, SELFPAY ==
--- NOTE | 2024-05-26 12:31 | ECHO_ITS ---
Patient Info Name: Zahida Mcmahon Age: 39 years : 1985 Gender: Female Ht: 62 in Wt: 150 lbs BSA: 1.74 m2 HR: 75 bpm BP: 124 / 82 mmHg Heart Rhythm: Sinus Rhythm Technical Quality: Good Exam Date: 05/26/2024 12:42 PM Exam Location: Echo Lab Patient Status: Outpatient Admit Date: 05/26/2024 Staff Ordering Physician: Cherise Juarez Home Management Supervisor: Herminia Marrero RDCS Attending Provider: Cherise Juarez Referring Physician: Larry CABEZAS; Exam Type: CA echo doppler color flow Study Info Indications R06.09 - Other forms of dyspnea Complete two-dimensional, color flow and Doppler transthoracic echocardiogram is performed. Summary 1. Complete two-dimensional, color flow and Doppler transthoracic echocardiogram is performed. 2. Left ventricular chamber dimension is normal. 3. Left ventricular systolic function is normal, estimated at 60-65%. 4. The left ventricular diastolic function is normal. 5. E/e' 7 is not elevated. 6. There is trace mitral valve regurgitation. 7. There is trace tricuspid valve regurgitation. 8. No pulmonary hypertension, estimated pulmonary arterial systolic pressure is 23 mmHg. Left Ventricle E/e' 7 is not elevated. Left ventricular chamber dimension is normal. Left ventricular systolic function is normal, estimated at 60-65%. The left ventricular diastolic function is normal. Right Ventricle Right ventricular systolic function is normal and with normal TAPSE 2.4 cm. Right ventricular chamber dimension is normal. Left Atria Left atrial chamber dimension is normal. Right Atria Right atrial chamber dimension is normal. Aortic Valve The aortic valve is trileaflet. There is no aortic valve stenosis. There is no aortic valve regurgitation. Pulmonic Valve There is no pulmonic regurgitation. Mitral Valve There is no mitral valve stenosis. There is trace mitral valve regurgitation. Tricuspid Valve There is trace tricuspid valve regurgitation. No pulmonary hypertension, estimated pulmonary arterial systolic pressure is 23 mmHg. Pericardium/Pleural There is no pericardial effusion. Inferior Vena Cava Normal inferior vena cava with >50% collapse upon inspiration consistent with normal right atrial pressure, 5 mmHg. Aorta The aortic root size at the sinus of Valsalva is normal. Left Ventricular Outflow Tract Name Value Normal LVOT 2D LVOT Diameter 2.0 cm LVOT Doppler LVOT Peak Gradient 3 mmHg LVOT Mean Gradient 1 mmHg LVOT VTI 16 cm LVOT VTI/AV VTI Ratio 0.5 LVOT Stroke Volume 49 ml LVOT CO 3.8 l/min LVOT CI 2.2 l/min/m2 Pulmonic Valve Name Value Normal RVOT Doppler RVOT Peak Gradient 2 mmHg PV Doppler
== END 2024-05-26 12:27 | disposition home or self-care (01) ==
LOC: ANHCARD 12:28
PROVIDERS: PCP Family Medicine; Visit Provider Nurse Practitioner Family
DX: R06.09 Other forms of dyspnea (principal); R07.89 Other chest pain
CPT/HCPCS: 93306

== ENCOUNTER 2024-10-17 07:08 | Outpatient (CLI) | payer OTHER, SELFPAY ==
--- OUTSIDE RECORDS SUMMARY | 2024-10-17 07:10 | XMS_ITS | CONTINUITY OF CARE DOCUMENT ---
Author Name flores tanner Address Unknown Organization [facility] Address [id number] [place] [address] [address] [place] [address] Phone [phone] Care Team Providers Care Newsperson Name Role Phone MAI BARKSDALE, EDIN F Unavailable MAI BARKSDALE, EDIN F Unavailable [phone] INSURANCE PROVIDERS Payer name Policy type / Coverage type [place] red constitution party ID [facility] [id number]
[2024-10-17 07:59] LABS: Rheumatoid Factor < 12.0 IU/ML (<12)
[2024-10-17 08:05] LABS: Erythrocyte Sedimentation Rate 14 mm/hr (0-20)
[2024-10-17 10:06] LABS: Vitamin D 25 Hydroxy 17.9 ng/mL
[2024-10-18 08:03] LABS: FSH 45.8 mIU/mL; LH 15.3 mIU/mL
[2024-10-19 14:19] LABS: ANA Pattern Nuclear, Speckled; ANA Titer 1:40 titer; Anti Nuclear Antibody Pattern Nuclear, Homogeneous; Anti Nuclear Antibody Titer 1:40 titer
== END 2024-10-17 07:09 | disposition home or self-care (01) ==
LOC: ANHLAB 07:09
PROVIDERS: PCP Family Medicine; Visit Provider Nurse Practitioner Family
DX: R53.83 Other fatigue (principal); R63.5 Abnormal weight gain
CPT/HCPCS: 36415; 82306; 82533; 82672; 83001; 83002; 84443; 85652; 86038; 86039; 86430

== ENCOUNTER 2024-12-16 09:24 | Outpatient (CLI) | payer OTHER, SELFPAY ==
--- OUTSIDE RECORDS SUMMARY | 2024-12-16 09:29 | XMS_ITS | Continuity of Care Document ---
Author Organization [facility] Address [address] [place] [address] [place] [address] Phone Care Team Providers Care Assistant Womens Volleyball Coach Name Role Phone Granados OD, Kendrick Unavailable Unavailable Procedures Procedure Date Eye Exam Established Pt Advance Directives Directive Yes / No Effective Date File Name No Information Encounters Encounter Description Practice Location Reason(s) For Visit Diagnoses Date Provider Providers Copied on Encounter [facility], [address], [place], [place], [id number], [place] tel:[phone] [facility] No Information 3-[address] Granados OD Kendrick. [address] , [address], [place], [address], [place]. tel:[phone] Referring Provider: Darryl Yo MD F, [address] [place], [address]. tel:[phone] Family History Family Member Type Diagnosis Age At Onset No Information Payers Payer name Insurance type Covered alliance party ID Authoriza tion(s) No Information Social History [...]
--- OUTSIDE RECORDS SUMMARY | 2024-12-16 09:29 | XMS_ITS | CONTINUITY OF CARE DOCUMENT ---
Author Name flores tanner Address Unknown Organization [facility] Address [address] [place] [address] [address] [place] [address] Phone [phone] Care Team Providers Care Recreation Program Specialist Name Role Phone MAI BARKSDALE, EDIN F Unavailable MAI BARKSDALE, EDIN F Unavailable [phone] INSURANCE PROVIDERS Payer name Policy type / Coverage type [place] red constitution party ID [facility] [id number]
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
[2024-12-16 10:36] LABS: Vitamin D 25 Hydroxy 54.3 ng/mL
== END 2024-12-16 09:25 | disposition home or self-care (01) ==
LOC: ANHLAB 09:27
PROVIDERS: PCP Family Medicine; Visit Provider Nurse Practitioner Family
DX: R10.2 Pelvic and perineal pain (principal); E55.9 Vitamin D deficiency, unspecified
CPT/HCPCS: 36415; 82306; 86850; 86900; 86901

== ENCOUNTER 2024-12-22 01:00 | Day surgery (SDC) | payer OTHER, SELFPAY ==
[2024-12-13 10:44] VITALS: BMI 28.5
--- NOTE | 2024-12-13 10:45 | PC.NURSE ---
Report to the Outpatient Waiting Room, entrance under the green pavilion located off [facility], at time _0730_ on date _[id number]_. Planned Procedure Time: _0930_.? Time changes happen often and if your time is changed the preop area will call you the afternoon before. - You and your visitor will be asked to self-screen and do not enter if you have any COVID symptoms. Please call surgeon if you need to reschedule. - A mask is optional within the hospital at this time. Patients may have clear liquids (water, carbonated beverages, clear teas, apple juice) until 3 hours prior to surgery with a maximum of 20 ounces. - No food from midnight until time of surgery and no smoking, or chewing tobacco (or any form of nicotine). No chewing gum, candy or mints. Take only the following medications with a SIP of water on the morning of surgery: __Vilazodone, and if needed Albuterol and or Lorazepam DO NOT STOP ANY OF YOUR OTHER PRESCRIPTION MEDICATIONS PRIOR TO SURGERY EXCEPT THE FOLLOWING Hold all vitamins and supplements for 3 days per anesthesiologist. Medications to discontinue per physician ___Ariannehannah says she was told to hold Phentermine 5 days prior to surgery.____ Date to take last wjmf____[id number]___ Please no make-up, nail french, hairspray, perfume, deodorant, or body powder the day of surgery.? No jewelry (including any body piercings) or valuables the day of surgery, leave them at home.? Please take a shower or bath the night before, or the morning of, surgery with an antibacterial soap.? Wear comfortable, loose fitting clothing.? - Jewelry must be removed prior to entering the operating room.? Rings and piercings that are not removed may be cut off. - The hospital will not accept responsibility for valuables.? - Please leave all valuables, including medications, at home the day of surgery. If you are going home after surgery, a licensed pile driver operator must drive you home.? - NO public transportation without another adult if you receive anesthesia. - We recommend that an adult stay with you for 24 hours following discharge. - We also recommend that you do not drive, make important decision, drink alcoholic beverages, or take any drugs that were not prescribed by your health care provider for at least 24 hours after your discharge time. Follow any additional instructions given to you from your surgeon. Telephone instructions given to __Zahida___and asked if any additional questions and then verbalized understanding. Patient advised to call surgeon office or pre surgery nurse liaison [phone] if any additional questions.
--- NOTE | 2024-12-19 12:30 | PM.IMHP ---
H&P: HPI History of Present Illness Date/Time: 12/19/24 12:30 Chief Complaint: Pelvic pain/dyspareunia Narrative: 39 female status post hysterectomy admitted for laparoscopy secondary to pain and discomfort. She has a history of endometriosis. She has severe pelvic pain and dyspareunia she will undergo diagnostic laparoscopy lysis of adhesions. Risks and benefits reviewed including but not exclusive of , aspiration pneumonia, bleeding, transfusion, perforation injury to bowel, bladder, ureters, or other internal organs with the need for open laparotomy. She received the ACOG handout entitled laparoscopy. She had all questions answered. She asked to proceed. Review of Systems Review of Systems: A 10 system review of systems was completed on the patient and is negative except for what is stated in the HPI. Nursing and ancillary documentation was reviewed. PENDING SALE TO [facility] Past Medical History Medical History Brain fog Fatigue Chest discomfort Depression Encounter for screening for lipid disorder Anxiety History of gastroesophageal reflux (GERD) History of asthma Surgical History Surgical History History of tubal ligation History of tonsillectomy History of section Hx of cholecystectomy Family History Family History Grandparent Hypertension Family history of coronary artery disease Mother Family history of gallbladder disease Father No problems noted. Sibling No problems noted. Other Diabetes mellitus Family history of lung cancer Social History Social History Years smoked: 6 Smoking status: Former smoker Tobacco type: cigarettes Second hand tobacco smoke exposure: No Smoking end date: 12/13/12 Additional smoking assessment comments: STATES 1PK/2DAYS/<10YRS QUIT 2009 Alcohol intake: current Drinks per week: 7 Substance use: never Substance use type: does not use Do You Feel Safe in your Home?: Yes Lack of Transportation: No Lack of Food: Never True Current Housing: I Have Housing Concerned About Future Housing: No Difficulty Paying Gas/Electric Bills: No Difficulty Paying for Meds: No Currently Unemployed: No Education: Bachelor's Degree Difficulty w/ Childcare or Family Care: No Living arrangements: with family Additional living arrangements comments: , daughter, and son Occupation/Education: occupation Additional occupation/education comments: [employer] Gender identity (if verbalized by the patient): Female Spiritual care concerns: No Meds Home Medications and Allergies Home Medications ?Medication ?Instructions ?Recorded ?Confirmed ?Type dicyclomine 10 mg capsule See Rx Instructions .Route 04/07/24 12/13/24 Rx .COMPLEX #180 caps albuterol sulfate 90 mcg/actuation 2 puff inhalation Q4H PRN 04/17/24 12/13/24 Rx aerosol inhaler (Ventolin HFA) Shortness Of Breath Or Wheezing #8.5 grams vilazodone 40 mg tablet (Viibryd) 40 mg PO DAILY #30 tabs 08/16/24 12/13/24 Rx cholecalciferol (vitamin D3) 1,250 1,250 mcg PO WEEKLY #8 caps 10/17/24 12/13/24 Rx mcg (50,000 unit) capsule estradiol 1 mg tablet 1 mg PO DAILY 11/14/24 12/13/24 History phentermine 37.5 mg tablet 37.5 mg PO DAILY #30 tabs 11/15/24 12/13/24 Rx lorazepam 0.5 mg tablet 1 mg (2 x 0.5 mg) PO DAILY PRN 11/27/24 12/13/24 Rx anxiety #60 tabs eszopiclone 2 mg tablet (Lunesta) 2 mg PO QHS #30 tabs 12/18/24 Rx Allergies Allergy/AdvReac Type Severity Reaction Status Date / Time tetanus and diphtheria AdvReac Unknown localized Verified 12/13/24 10:38 toxoids swelling reaction Exam Const: General: cooperative, healthy appearing, comfortable, alert, awake, well groomed and overweight Orientation/consciousness: oriented to person, oriented to place and oriented to time HENMT: Head: normal to inspection Resp: Effort & Inspection: normal respiratory effort Cardio: Rate: regular rate Rhythm: regular rhythm Heart sounds: S1 normal heart sound present and S2 normal heart sound present GI: Inspection: normal to inspection Auscultation: normal bowel sounds : External Female Exam: normal external appearance Speculum Exam - Vagina: normal appearance of the vagina Speculum Exam - Cervix: Cervix absent Bimanual exam- vagina & uterus: uterus absent Bimanual Exam- Adnexa, other: tender bilaterally Assessment and Plan Assessment and plan (1) Pelvic pain: Code(s): R10.2 - Pelvic and perineal pain Status: Acute Plan Proceed with laparoscopy and lysis of adhesions
[2024-12-22] VITALS (11 sets, daily range): BP systolic 94–123; BP diastolic 51–78; PULSE 55–88; RESP 11–20; TEMP 36.3–36.4; O2SAT 94–100
--- OUTSIDE RECORDS SUMMARY | 2024-12-22 01:03 | XMS_ITS | Continuity of Care Document ---
Author Organization [facility] Address [address] [place] [address] [place] [address] Phone Care Team Providers Care Torpedo Man Name Role Phone Granados OD, Kendrick Unavailable Unavailable Procedures Procedure Date Eye Exam Established Pt Advance Directives Directive Yes / No Effective Date File Name No Information Encounters Encounter Description Practice Location Reason(s) For Visit Diagnoses Date Provider Providers Copied on Encounter [facility], [address], [place], [place], [id number], [place] tel:[phone] [facility] No Information 3-200 7 Granados OD Kendrick. [address] , [address], [place], [address], [place]. tel:[phone] Referring Provider: Darryl Yo MD F, [address] [place], [address]. tel:[phone] Family History Family Member Type Diagnosis Age At Onset No Information Payers Payer name Insurance type Covered green party ID Authoriza tion(s) No Information Social [...]
--- OUTSIDE RECORDS SUMMARY | 2024-12-22 01:03 | XMS_ITS | CONTINUITY OF CARE DOCUMENT ---
Author Name flores tanner Address Unknown Organization [facility] Address [address] [place] [address] [address] [place] [address] Phone [phone] Care Team Providers Care Dish Washer Name Role Phone MAI BARKSDALE, EDIN F Unavailable [phone] MAI BARKSDALE, EDIN F Unavailable [phone] INSURANCE PROVIDERS Payer name Policy type / Coverage type Omega red green party ID [facility] [id number]
--- OUTSIDE RECORDS SUMMARY | 2024-12-22 01:03 | XMS_ITS | Clinical Summary ---
Author Organization [facility] Address [address] [place] [address] Care Team Providers Care Epic Radiant Analyst Name Role Phone Darryl Yo MD Primary Care Provider Source Comments [facility],non-owned Affiliates and Associated Physician Practices is amultiple site organization consisting of ambulatory clinics and hospital sitesin [place], [place], [place] and [place]. This disclosure is being madepursuant to the Care Everywhere program and may not contain all information available regarding this patient. Last updated 18.[facility] Allergies No known active allergies Medications * [...] OR WHEEZING 04/17/2024 Active D3-50 1.25 MG (17221 UT) Take 1 capsule by mouth every [...] 11/07/2024 Assessment & Plan (11/07/2024 5:28 PM FREIGHT BROKER): Zahida Mcmahon is a 39 year old female referred to [facility] regarding the finding of a low [...] component of allodynia. 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 She was involved [...] issues and opiate induced hyperalgesia (use of termite treater opiate/narcotic actually causing more pain rather than [...] without contraindication to use but will defer termite treater treatment management decisions to her primary care [...] the normal population will have a positive REHAN test;and can also be seen in other [...] erythematosus or systemic inflammatory rheumatic disorder by [place] [employer] (ACR) diagnostic classification criteria [...] Department Care Team Description 11/07/2024 4:00 PM FREIGHT BROKER Office Visit [facility] Rheumatology [address], [address] [place] [address] Shorty Aguirre DO Fibromyalgia (Primary Dx) from [...] Comments Blood Pressure 122/60 11/07/2024 3:52 PM FREIGHT BROKER Pulse 98 11/07/2024 3:52 PM FREIGHT BROKER Temperature 36.1 C (97 F) 11/07/2024 3:52 PM FREIGHT BROKER Respiratory Rate - - Oxygen Saturation 100% 11/07/2024 3:52 PM FREIGHT BROKER Inhaled Oxygen Concentration - - Weight 76.7 kg (169 lb) 11/07/2024 3:52 PM FREIGHT BROKER Height 157.5 cm (5' 2 ) 11/07/2024 3:52 PM FREIGHT BROKER Body Mass Index 30.91 11/07/2024 3:52 PM FREIGHT BROKER Plan of Treatment Upcoming Encounters Date Type Department Care Team (Late st Contact Info) Description 06/04/2025 8:20 AM CDT Office Visit [facility] - Rheumatology [address] [place] [address], [place] [address] No Shea MD [address] [place] [address] [place] [address] Health Maintenance Due Date Last Done Comments LIPID TESTING 1983 MAMMOGRAM 1983 PAP SMEAR 1983 HIV SCREENING 1998 HEPATITIS C SCREENING 02/05/2001 DTAP/TDAP/TD VACCINES (1 - Tdap) 2002 HEPATITIS B VACCINE (1 of 3 - 19+ 3-dose series) 2002 COVID-19 VACCINE (1 - 2023-2 5 season) 2024 SCREENING FOR DIABETES 11/07/2024 INFLUENZA VACCINE (Season Ended) 2025 ZOSTER VACCINE (1 of 2) 2033 DEPRESSION [...] age to complete this topic Care Teams Epic Radiant Analyst Relationship Specialty Start Date End Date Darryl Yo MD [address] [place] [address] [facility] - General 11/04/20
[2024-12-22] MEDS: ACETAMINOPHEN 500 MG TABLET 1000 MG PO (06:15)
[2024-12-22] MEDS: LACTATED RINGERS 1,000 ML 30 ML IV CONT ×2 (06:20→08:47)
[2024-12-22] MEDS: KETOROLAC 15 MG/ML VIAL (*BKC) IV PUSH (06:20)
--- NOTE | 2024-12-22 06:26 | WPDHPUPDATE1 ---
History and Physical Update Update Date/Time: 12/22/24 06:26 History and Physical has been reviewed, including an updated exam of the patient. There are NO changes in the patient's condition. Risks, benefits, and alternatives have been discussed and questions answered. Patient agrees to proceed with procedure.
[2024-12-22] MEDS: SCOPOLAMINE 1 MG PATCH 1 PATCH TRANSDERM (07:20)
--- NOTE | 2024-12-22 08:00 | W.PM.PROC2 ---
Procedure Note - Detailed Date of Procedure 12/22/24 Pre-op Diagnosis pelvic pain, dyspareunia, pelvic adhesions Post-op Diagnosis Same Procedure Performed the name of the procedure was laparoscopy with cauterization of endometriosis destruction of ovarian cysts and lysis of adhesionsThe patient was prepped draped in the normal sterile fashion placed in the dorsal lithotomy position. Under excellent general trach anesthesia weighted speculum placed in posterior fornix vagina. A sponge stick was placed in the bladder drained clear urine. The weighted speculum was removed the gloves were changed. A supraumbilical incision made the Veress needle passed in the abdomen. Abdomen filled with CO2 gas 15mmmmofmercury. The 5mm trocar advanced the abdomen. Downside visualized no injury seen. Patient placed in Trendelenburg and a suprapubic incision made. The 5mm trocar advanced under direct visualization assuring no injury. About 30cc of serosanguineous fluid was seen and this was suction and irrigated removed. Areas of endometriosis were seen along vaginal cuff and the uterosacral ligaments. These were cauterized with 35 w per 2nd. The uterus was surgically absent bilaterally the ovaries were drained of clear fluid. Adhesions were seen to the and anterior abdominal wall these were sharply dissected using monopolar cautery irrigation undertaken to clear no other abnormalities were seen. The lower sites removed. The gas removed from the abdomen the upper/removed and the incisions closed with 4 Monocryl and glue patient went recovery in satisfactory condition. All sponge, needle, instrument counts were correct. There were no immediate complications Surgeon Fahad Osorio MD Anesthesia General Indications 39-year-old female status post hysterectomy and pelvic Findings uterus was absent. Ovaries had by 9 ovarian cyst. Tubes were absent. Endometriosis was seen adhesions from the anterior abdominal wall Description of Procedure see the description above Implants none Estimated Blood Loss 5 Drains No Packing No Pathology None sent Complications No immediate complications Condition Stable Disposition PACU
[2024-12-22] MEDS: fentaNYL CITRATE INJ (*CRX) 100 MCG/2 ML VIAL 25 MCG IV PUSH ×8 (08:36→09:17)
[2024-12-22] MEDS: oxyCODONE HCL (*CRX) 5 MG TAB IR PO (09:33)
[2024-12-22] MEDS: HYDROmorphone HCL INJ (*CRX) 1 MG/ML SYR IV PUSH (09:42)
[2024-12-22] MEDS: ONDANSETRON INJ 4 MG/2 ML VIAL IV PUSH (10:12)
[2024-12-22] MEDS: diphenhydrAMINE HCl INJ 50 MG/ML VIAL 25 MG IV PUSH (10:27)
== END 2024-12-22 10:57 | disposition home or self-care (01) ==
PROVIDERS: PCP Family Medicine; Visit Provider Obstetrics & Gynecology
PROC: (CPT 49320; principal; 2024-12-22 07:30)
DX: N80.3C3 Endometriosis of bilateral uterosacral ligament(s), unspecified depth (principal); N80.8 Other endometriosis; N83.202 Unspecified ovarian cyst, left side; N83.201 Unspecified ovarian cyst, right side; R10.2 Pelvic and perineal pain; N94.10 Unspecified dyspareunia; N73.6 Female pelvic peritoneal adhesions (postinfective); Z90.710 Acquired absence of both cervix and uterus; Z87.891 Personal history of nicotine dependence
CPT/HCPCS: 58662; A9270; J1100; J1171; J1200; J1885; J2003; J2250; J2405; J2704; J3010; J7030; J7120

== ENCOUNTER 2024-12-26 06:33 | Outpatient (CLI) | payer OTHER, SELFPAY ==
--- NOTE | ~2024-12-26 | MR_ITS ---
MRI of the brain Clinical History: Anesthesia of skin Technique: Axial and sagittal T1-weighted images were acquired. These were followed by axial T2-weigh james, diffusion weighted, gradient, and FLAIR images. Following intravenous administration of 14 cc Pr oHance gadolinium, T1-weighted fat-sat imaging was performed in the axial and coronal planes. Findings: No abnormal signal seen in the brain parenchyma. No acute infarct, intracranial hemorrhage, or mass lesion. Ventricles and subarachnoid spaces are unremarkable. Orbits are unremarkable. Paranasal sinuses and m astoid clear. Major intracranial flow voids are intact. Sagittal midline structures are intact. No abnormal postcontrast enhancement identified. IMPRESSION: Unremarkable exam. Reviewed, dictated and finalized at location M. IMPRESSION: Unremarkable exam.
--- OUTSIDE RECORDS SUMMARY | 2024-12-26 06:38 | XMS_ITS | Clinical Summary ---
Author Organization [facility] Address [address] [place] [address] Care Team Providers Care Supply Chain Vice President Name Role Phone Darryl Yo MD Primary Care Provider [phone] Source Comments [facility],non-owned Affiliates and Associated Physician Practices is amultiple site organization consisting of ambulatory clinics and hospital sitesin [place], [place], [place] and [place]. This disclosure is being madepursuant to the Care Everywhere program and may not contain all information available regarding this patient. Last updated 18.[facility] Allergies No known active allergies Medications * Be aware that medications may not be up to date on this document. Alwaysverify current medications with the patient. albuterol HFA (Proventil; Ventolin; Proair) 108 (90 Base) MCG/ACT inhaler INHALE 2 PUFFS BY MOUTH EVERY 4 HOURS NEEDED FOR SHORTNESS OF BREATH OR WHEEZING 4 Active D3-50 1.25 MG (66456 UT) Take 1 capsule by mouth every 7 days 5 Active dicyclomine (Bentyl) 10 MG capsule TAKE 1 CAPSULE BY MOUTH TWICE DAILY FOR IRRITABLE BOWEL SYNDROME 4 Active vilazodone (Viibryd) 40 MG tablet Take 1 (one) tablet by mouth once daily 5 Active LORazepam (Ativan) 0.5 MG tablet 5 Active eszopiclone (Lunesta) 2 MG tablet Take 1 (one) tablet by mouth 5 Active Active Problems Problem Noted Date Diagnosed Date Fibromyalgia 11/07/2024 Assessment & Plan (11/07/2024 5:28 PM INNER LAYER SCRUBBER TENDER): Zahida Mcmahon is a 39 year old female referred to [facility]'s Rheumatology regarding the finding of a low [...] component of allodynia. 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 She was [...] issues and opiate induced hyperalgesia (use of mcc opiate/narcotic actually causing more pain rather than [...] without contraindication to use but will defer termination clerk treatment management decisions to her primary care [...] erythematosus or systemic inflammatory rheumatic disorder by [employer] (ACR) diagnostic classification criteria [...] Department Care Team Description 11/07/2024 4:00 PM INNER LAYER SCRUBBER TENDER Office Visit [facility] - Rheumatology [address], [address] [place] [address] Shorty Aguirre DO Fibromyalgia (Primary Dx) from [...] Recorded Patient Health Questionnaire-2 Score 2 11/07/2024 Comments No Sex and Gender Information Value Date Recorded Sex Assigned at Not on file Legal Sex Female 6:25 AM INNER LAYER SCRUBBER TENDER Gender Identity Not on file Sexual Orientation Not on file Last Filed Vital Signs Vital Sign Reading Time Taken Comments Blood Pressure 122/60 11/07/2024 3:52 PM INNER LAYER SCRUBBER TENDER Pulse 98 11/07/2024 3:52 PM INNER LAYER SCRUBBER TENDER Temperature 36.1 C (97 F) 11/07/2024 3:52 PM INNER LAYER SCRUBBER TENDER Respiratory Rate - - Oxygen Saturation 100% 11/07/2024 3:52 PM INNER LAYER SCRUBBER TENDER Inhaled Oxygen Concentration - - Weight 76.7 kg (169 lb) 11/07/2024 3:52 PM INNER LAYER SCRUBBER TENDER Height 157.5 cm (5' 2 ) 11/07/2024 3:52 PM INNER LAYER SCRUBBER TENDER Body Mass Index 30.91 11/07/2024 3:52 PM INNER LAYER SCRUBBER TENDER Plan of Treatment Upcoming Encounters Date Type Department Care Team (Late st Contact Info) Description 06/04/2025 8:20 AM CDT Office Visit [facility] - Rheumatology [address] [place] [address], [place] [address] No Shea MD [address] [place] [address] [place] [address] Health Maintenance Due Date Last Done Comments [...] on patient's age to complete this topic Insurance [facility] Care Teams Supply Chain Vice President Relationship Specialty Start Date End Date Darryl Yo MD [address] [place] [address] PCP - General 11/04/20
--- OUTSIDE RECORDS SUMMARY | 2024-12-26 06:38 | XMS_ITS | Continuity of Care Document ---
Author Organization [facility] Address [address] [place] [address] [place] [address] Phone Care Team Providers Care Risk Management Consultant Name Role Phone Granados OD, Kendrick Unavailable Unavailable Procedures Procedure Date Eye Exam Established Pt Advance Directives Directive Yes / No Effective Date File Name No Information Encounters Encounter Description Practice Location Reason(s) For Visit Diagnoses Date Provider Providers Copied on Encounter [facility], [address], [place], [place], [id number], [place] tel:[phone] [facility] No Information 3-200 7 Granados OD Kendrick. [address] , [address], [place], [address], [place]. tel:[phone] Referring Provider: Darryl Yo MD F, [address] [place], [address]. tel:[phone] Family History Family Member Type Diagnosis Age At Onset No Information Payers Payer name Insurance type Covered constitution party ID Authoriza tion(s) No Information Social [...]
--- OUTSIDE RECORDS SUMMARY | 2024-12-26 06:38 | XMS_ITS | CONTINUITY OF CARE DOCUMENT ---
Author Name flores tanner Address Unknown Organization [facility] Address [id number] [place] [address] [address] [place] [address] Phone [phone] Care Team Providers Care Dictaphone Technician Name Role Phone MAI BARKSDALE, EDIN F Unavailable [phone] MAI BARKSDALE, EDIN F Unavailable [phone] INSURANCE PROVIDERS Payer name Policy type / Coverage type [employer] red libertarian ID [facility] [id number]
== END 2024-12-26 06:34 | disposition home or self-care (01) ==
PROVIDERS: PCP Family Medicine; Visit Provider Nurse Practitioner Family
DX: R53.83 Other fatigue (principal); R41.89 Other symptoms and signs involving cognitive functions and awareness
CPT/HCPCS: 70553; A9579

== ENCOUNTER 2025-04-17 09:29 | Outpatient (CLI) | payer OTHER, SELFPAY ==
--- NOTE | ~2025-04-17 | MM_ITS ---
EXAMINATION: screening [facility] BI w doe INDICATION: Asymptomatic, referred for screening mammogram COMPARISON: Baseline TECHNIQUE: Digital Breast Tomosynthesis CC, MLO views of Both breasts were obtained with computer-ai ded detection to assist in interpretation of the study. FINDINGS: There are scattered areas of fibroglandular density. There is a circumscribed mass in the superior lateral at posterior depth in right breast. There is an asymmetry seen on the cc view in the medial left breast at posterior depth. Elsewhere, there are no mammographic features of malignancy. IMPRESSION: 1. Right breast Mass. 2. Left breast asymmetry.. RECOMMENDATION: Left breast Diagnostic mammogram with true lateral, appropriate spot compression views and an ultraso und if needed. Right breast ultrasound BI-RADS Category 0: Incomplete: Needs additional imaging evaluation. Reviewed, dictated and finalized at location B. IMPRESSION: 1. Right breast Mass. 2. Left breast asymmetry.. RECOMMENDATION: Left breast Diagnostic mammogram with true lateral, appropriate spot compressio n views and an ultrasound if needed. Right breast ultrasound BI-RADS Category 0: Incomplete: Needs additional imaging evaluation.
--- OUTSIDE RECORDS SUMMARY | 2025-04-17 09:49 | XMS_ITS | Clinical Summary ---
Author Organization [facility] Address [address] [place] [address] Care Team Providers Care Skating Rink Ice Maker Name Role Phone Darryl Yo MD Primary Care Provider [phone] Source Comments [facility],non-owned Affiliates and Associated Physician Practices is amultiple site organization consisting of ambulatory clinics and hospital sitesin [place], [place], [place] and [place]. This disclosure is being madepursuant to the Care Everywhere program and may not contain all information available regarding this patient. Last updated 18.[facility] Allergies No known active allergies Medications * Be aware that medications may not be up to date on this document. Alwaysverify current medications with the patient. albuterol HFA (Proventil; Ventolin; Proair) 108 (90 Base) MCG/ACT inhaler INHALE 2 PUFFS BY MOUTH EVERY 4 HOURS NEEDED FOR SHORTNESS OF BREATH OR WHEEZING 4 Active D3-50 1.25 MG (60734 UT) Take 1 capsule by mouth every [...] 11/07/2024 Assessment & Plan (11/07/2024 5:28 PM REWINDER OPERATOR HELPER): Zahida Mcmahon is a 39 year old female referred to [facility]'s Rheumatology regarding the finding of a low [...] component of allodynia. 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 She was involved [...] issues and opiate induced hyperalgesia (use of snf opiate/narcotic actually causing more pain rather than [...] without contraindication to use but will defer suction roller treatment management decisions to her primary care [...] erythematosus or systemic inflammatory rheumatic disorder by [place] [employer] Rheumat[employer] (ACR) diagnostic classification criteria [...] gender, older age, and numerous other conditions. Family History Medical History Relation Name Comments [...] on file Legal Sex Female 6:25 AM REWINDER OPERATOR HELPER Gender Identity Not on file Sexual Orientation Not on file Last Filed Vital Signs Vital Sign Reading Time Taken Comments Blood Pressure 122/60 11/07/2024 3:52 PM REWINDER OPERATOR HELPER Pulse 98 11/07/2024 3:52 PM REWINDER OPERATOR HELPER Temperature 36.1 C (97 F) 11/07/2024 3:52 PM REWINDER OPERATOR HELPER Respiratory Rate - - Oxygen Saturation 100% 11/07/2024 3:52 PM REWINDER OPERATOR HELPER Inhaled Oxygen Concentration - - Weight 76.7 kg (169 lb) 11/07/2024 3:52 PM REWINDER OPERATOR HELPER Height 157.5 cm (5' 2) 11/07/2024 3:52 PM REWINDER OPERATOR HELPER Body Mass Index 30.91 11/07/2024 3:52 PM REWINDER OPERATOR HELPER Plan of Treatment Upcoming Encounters Date Type Department Care Team (Late st Contact Info) Description 06/06/2025 10:00 AM CDT Office Visit [facility] - Rheumatology [address] [place] [address], [place] [address] No Shea MD [address] [place] [address] [place] [address] Health Maintenance Due Date Last Done Comments LIPID TESTING 1983 MAMMOGRAM 1983 HIV SCREENING 1998 HEPATITIS C SCREENING 02/05/2001 DTAP/TDAP/TD VACCINES (1 - Tdap) 2002 HEPATITIS B VACCINE (1 of 3 - 19+ 3-dose series) 2002 PAP SMEAR 02/11/2004 HPV VACCINE (1 - 3-dose SCDM series) 2010 COVID-19 VACCINE (1 - 2023-2 5 season) 2024 SCREENING FOR DIABETES 11/07/2024 INFLUENZA VACCINE (#1) 2025 ZOSTER VACCINE (1 of 2) 2033 [...] patient's age to complete this topic Insurance [facility] Care Teams Skating Rink Ice Maker Relationship Specialty Start Date End Date Darryl Yo MD [address] [place] [address] PCP - General 11/04/20
== END 2025-04-17 09:30 | disposition home or self-care (01) ==
LOC: ANHIMG 09:30
PROVIDERS: PCP Family Medicine; Visit Provider Obstetrics & Gynecology
DX: Z12.31 Encounter for screening mammogram for malignant neoplasm of breast (principal); R92.8 Other abnormal and inconclusive findings on diagnostic imaging of breast
CPT/HCPCS: 77063; 77067

== ENCOUNTER 2025-05-18 12:19 | Outpatient (CLI) | payer OTHER, SELFPAY ==
--- OUTSIDE RECORDS SUMMARY | 2006-12-14 08:49 | XMS_ITS | Continuity of Care Document ---
Author Organization [facility] Address [address] [place] [address] [place] [address] Phone Care Team Providers Care Licensed Reactor Operator Name Role Phone Granados OD, Kendrick Unavailable Unavailable Procedures Procedure Date Eye Exam Established Pt Advance Directives Directive Yes / No Effective Date File Name No Information Encounters Encounter Description Practice Location Reason(s) For Visit Diagnoses Date Provider Providers Copied on Encounter [facility], [address], [place], [place], [id number], [place] tel:[phone] [address] [facility] No Information 3-200 7 Granados OD Kendrick. [address] , [address], [place], [address], [place]. tel:[phone] Referring Provider: Darryl Yo MD F, [address] [place], [address]. tel:[phone] Family History Family Member Type Diagnosis Age [...]
--- NOTE | ~2025-05-18 | MM_ITS ---
EXAMINATION: MM diagnostic maryse BI w doe HISTORY: Inconclusive mammogram. Right breast mass. Asymmetry in the left breast. TECHNIQUE: [Additional images of both breasts were performed using full field digital mammography. 3-D tomosynthesis were also obtained and synthetic 2-D images were generated. CAD analysis was submitted and interpreted. High resolution bilateral breast ultrasound was performed.] ] COMPARISON: Mammograms from 04/17/2025 BREAST PARENCHYMAL COMPOSITION: The breasts are heterogeneously dense, which may obscure small masses. FINDINGS: MAMMOGRAPHIC FINDINGS: Redemonstration of the mass in the upper outer quadrant of the right breast which probably corresponds with a 2.7 cm heterogeneous mass in the right breast at the 10:00 position identified by sonography. The finding is suspicious. Redemonstration of the asymmetry in the medial left breast, posterior depth, seen in the left CC projection. No sonographic correlate. The finding is probably benign. Suspicious calcifications or architectural distortion. ULTRASOUND: There is a 2.6 x 2.7 x 1.2 cm heterogeneous mass in the right breast at the 10:00 position 5 cm from nipple middle depth. The finding is wider than tall. No internal color Doppler flow. No posterior acoustic shadowing. The finding probably corresponds with the mammographic mass identified in the upper outer quadrant of the right breast. The finding is suspicious. There is a 3 x 2 x 2 mm hypoechoic cyst versus solid mass in the left breast at the 2:00 position 7 cm in the middle depth. The finding is wider than tall. Margins are well-circumscribed. No internal color flow. No posterior acoustic shadowing. The finding is probably benign. There is a 5 x 5 x 2 mm hypoechoic cyst versus solid mass in the left breast at 3:00 position 4 cm in the middle depth. The finding is wider than tall. Margins are well-circumscribed. No internal color Doppler flow. No posterior acoustic shadowing. The finding is probably benign. There is a 3 x 3 x 2 mm benign cyst in the left breast 7:00 position 1 cm from the nipple. IMPRESSION/RECOMMENDATION: 1. There is a 2.7 cm mass in the right breast at the 10:00 position. The finding is suspicious. An ultrasound guided breast biopsy is recommended. 2. Probably benign findings in the left breast. A diagnostic left breast mammogram and a diagnostic left breast ultrasound in 6 months is recommended. BI-RADS 4-Suspicious finding. Protocol insures that results of the study are called and/or faxed to the referring clinician's office and documented in the patient's chart critical findings protocol. Reviewed, dictated and finalized at location Q. IMPRESSION/RECOMMENDATION: 1. There is a 2.7 cm mass in the right breast at the 10:00 position. The findin g is suspicious. An ultrasound guided breast biopsy is recommended. 2. Probably benign findings in the left breast. A diagnostic left breast mammog rebekah and a diagnostic left breast ultrasound in 6 months is recommended. BI-RADS 4-Suspicious finding. Protocol insures that results of the study are called and/or faxed to the refer ring clinician's office and documented in the patient's chart critical findings protocol.
--- OUTSIDE RECORDS SUMMARY | 2025-05-18 12:23 | XMS_ITS | Clinical Summary ---
Author Organization [facility] Address [address] [place] [address] Care Team Providers Care Voucher Clerk Name Role Phone Darryl Yo MD Primary Care Provider [phone] Source Comments [facility],non-owned Affiliates and Associated Physician Practices is amultiple site organization consisting of ambulatory clinics and hospital sitesin [place], [place], [place] and [place]. This disclosure is being madepursuant to the Care Everywhere program and may not contain all information available regarding this patient. Last updated 18.[facility] Allergies No known active allergies Medications * Be aware that medications may not be up to date on this document. Alwaysverify current medications with the patient. albuterol HFA (Proventil; Ventolin; Proair) 108 (90 Base) MCG/ACT inhaler INHALE 2 PUFFS BY MOUTH EVERY 4 HOURS NEEDED FOR SHORTNESS OF BREATH OR WHEEZING 4 Active D3-50 1.25 MG (90495 UT) Take 1 capsule by mouth every [...] 11/07/2024 Assessment & Plan (11/07/2024 5:28 PM SUPERVISOR BORDER DEPARTMENT): Zahida Mcmahon is a 39 year old female referred to [facility]'s Rheumatology regarding the finding of a [...] component of allodynia. 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 She was involved [...] issues and opiate induced hyperalgesia (use of mcfp opiate/narcotic actually causing more pain rather than [...] without contraindication to use but will defer mcfp treatment management decisions to her primary care [...] erythematosus or systemic inflammatory rheumatic disorder by [employer] Rheumat[employer] (ACR) diagnostic classification criteria [...] on file Legal Sex Female 6:25 AM SUPERVISOR BORDER DEPARTMENT Gender Identity Not on file Sexual Orientation Not on file Last Filed Vital Signs Vital Sign Reading Time Taken Comments Blood Pressure 122/60 11/07/2024 3:52 PM SUPERVISOR BORDER DEPARTMENT Pulse 98 11/07/2024 3:52 PM SUPERVISOR BORDER DEPARTMENT Temperature 36.1 C (97 F) 11/07/2024 3:52 PM SUPERVISOR BORDER DEPARTMENT Respiratory Rate - - Oxygen Saturation 100% 11/07/2024 3:52 PM SUPERVISOR BORDER DEPARTMENT Inhaled Oxygen Concentration - - Weight 76.7 kg (169 lb) 11/07/2024 3:52 PM SUPERVISOR BORDER DEPARTMENT Height 157.5 cm (5' 2) 11/07/2024 3:52 PM SUPERVISOR BORDER DEPARTMENT Body Mass Index 30.91 11/07/2024 3:52 PM SUPERVISOR BORDER DEPARTMENT Plan of Treatment Upcoming Encounters Date Type Department Care Team (Late st Contact Info) Description 06/06/2025 10:00 AM CDT Office Visit [facility] - Rheumatology [address] [place] [address], [place] [address] No Shea MD [address] [place] [address] [place] [address] Health Maintenance Due Date Last Done Comments LIPID TESTING 1983 MAMMOGRAM 1983 HIV SCREENING 1998 HEPATITIS C SCREENING 02/05/2001 DTAP/TDAP/TD VACCINES (1 - Tdap) 2002 HEPATITIS B VACCINE (1 of 3 - 19+ 3-dose series) 2002 HPV VACCINE (1 - 3-dose SCDM series) [...] patient's age to complete this topic Insurance [id number] [place] [address] CARE [facility] Care Teams Voucher Clerk Relationship Specialty Start Date End Date Darryl Yo MD [address] [place] [address] PCP - General 11/04/20
== END 2025-05-18 12:20 | disposition home or self-care (01) ==
LOC: ANHFOHIMG 12:22
PROVIDERS: PCP Nurse Practitioner Family; Visit Provider Obstetrics & Gynecology
DX: R92.8 Other abnormal and inconclusive findings on diagnostic imaging of breast (principal)
CPT/HCPCS: 76642; 77062; 77066; G0279

== ENCOUNTER 2025-05-30 07:03 | Outpatient (CLI) | payer OTHER, SELFPAY ==
--- NOTE | ~2025-05-30 | MR_ITS ---
EXAMINATION: MR cervical spine wo/w con COMPARISON: None HISTORY: R20.0 - Anesthesia of skin TECHNIQUE: Multiplanar multisequence images obtained of the cervical spine without and with intravenous contrast, Prohance 17cc injected IV. FINDINGS: The vertebral heights are intact. There is no fracture or subluxation. Marrow signal appropriate. Posterior alignment intact. No abnormal signal in the posterior elements or the clivus The cerebellar tonsils are in normal location, there is no abnormal signal within the cervical cord. Minimal loss of disc height throughout with minimal disc desiccation and endplate degenerative changes Appropriate flow voids are maintained. The soft tissues appear unremarkable C2-3: No canal or foraminal stenosis C3-4: No canal or foraminal stenosis C4-5: No canal or foraminal stenosis C5-6: No canal or foraminal stenosis C6-7: No canal or foraminal stenosis C7-T1: No canal or foraminal stenosis There is no abnormal enhancement identified IMPRESSION: 1. No etiology to explain the patient's symptoms. Reviewed, dictated and finalized at location A.
--- NOTE | ~2025-05-30 | MR_ITS ---
EXAMINATION: MR thoracic spine wo/w con DATE: 05/30/2025 08:24 INDICATION: Anesthesia of skin. TECHNIQUE: Magnetic resonance imaging (MRI) of the thoracic spine was performed without and with 14 mL MultiHance intravenous contrast. COMPARISON: None FINDINGS: Alignment is normal. Vertebral body heights are normal. Intervertebral disc heights are normal. The discs do not extend beyond the endplate margins. There is multilevel mild facet joint osteoarthritis. There is no neural foraminal stenosis or central canal stenosis. The spinal cord signal intensity is normal. The conus medullaris is at L1. IMPRESSION: 1. Mild thoracic facet joint osteoarthritis. Reviewed, dictated and finalized at location E.
--- OUTSIDE RECORDS SUMMARY | 2025-05-30 07:08 | XMS_ITS | Clinical Summary ---
Author Organization [facility] Address [address] [place] [address] Care Team Providers Care Environmental Services Aide Name Role Phone Darryl Yo MD Primary Care Provider [phone] Source Comments [facility],non-owned Affiliates and Associated Physician Practices is amultiple site organization consisting of ambulatory clinics and hospital sitesin [place], [place], [place]. This disclosure is being madepursuant to the Care Everywhere program and may not contain all information available regarding this patient. Last updated 18.[facility] Allergies No known active allergies Medications * Be aware that medications may not be up to date on this document. Alwaysverify current medications with the patient. albuterol HFA (Proventil; Ventolin; Proair) 108 (90 Base) MCG/ACT inhaler INHALE 2 PUFFS BY MOUTH EVERY 4 HOURS NEEDED FOR SHORTNESS OF BREATH OR WHEEZING 4 Active D3-50 1.25 MG (15471 UT) Take 1 capsule by mouth every [...] 11/07/2024 Assessment & Plan (11/07/2024 5:28 PM TAP PULLER): Zahida Mcmahon is a 39 year old female referred to [facility]'s Rheumatology regarding the finding of a low [...] component of allodynia. 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 She was involved [...] issues and opiate induced hyperalgesia (use of jail opiate/narcotic actually causing more pain rather than [...] without contraindication to use but will defer emt intermediate treatment management decisions to her primary care [...] erythematosus or systemic inflammatory rheumatic disorder by [employer] [employer] Rheumat[employer] (ACR) diagnostic classification criteria [...] on file Legal Sex Female 6:25 AM TAP PULLER Gender Identity Not on file Sexual Orientation Not on file Last Filed Vital Signs Vital Sign Reading Time Taken Comments Blood Pressure 122/60 11/07/2024 3:52 PM TAP PULLER Pulse 98 11/07/2024 3:52 PM TAP PULLER Temperature 36.1 C (97 F) 11/07/2024 3:52 PM TAP PULLER Respiratory Rate - - Oxygen Saturation 100% 11/07/2024 3:52 PM TAP PULLER Inhaled Oxygen Concentration - - Weight 76.7 kg (169 lb) 11/07/2024 3:52 PM TAP PULLER Height 157.5 cm (5' 2) 11/07/2024 3:52 PM TAP PULLER Body Mass Index 30.91 11/07/2024 3:52 PM TAP PULLER Plan of Treatment Upcoming Encounters Date Type Department Care Team (Late st Contact Info) Description 06/06/2025 10:00 AM CDT Office Visit [facility] - Rheumatology [address] [place] [address], [place] [address] No Shea MD [address] [place] [address] [place] [address] Health Maintenance Due Date Last Done Comments LIPID TESTING 1983 MAMMOGRAM 1983 HIV SCREENING 1998 HEPATITIS C SCREENING 02/05/2001 DTAP/TDAP/TD VACCINES (1 - Tdap) 2002 HEPATITIS B VACCINE (1 of 3 - 19+ 3-dose series) 2002 HPV VACCINE (1 - 3-dose SCDM series) 2010 SCREENING FOR DIABETES 11/07/2024 COVID-19 VACCINE (1 - 2023-2 5 season) 2025 INFLUENZA VACCINE (#1) 2025 ZOSTER VACCINE (1 [...] patient's age to complete this topic Insurance [id number] [place] [address] [facility]ARE [facility] Care Teams Environmental Services Aide Relationship Specialty Start Date End Date Darryl Yo MD [address] [place] [address] PCP - General 11/04/20
== END 2025-05-30 07:04 | disposition home or self-care (01) ==
LOC: ANHIMG 07:05
PROVIDERS: PCP Nurse Practitioner Family; Visit Provider Psychiatry & Neurology Neurology
DX: M47.814 Spondylosis without myelopathy or radiculopathy, thoracic region (principal); R20.0 Anesthesia of skin; R20.2 Paresthesia of skin; R41.89 Other symptoms and signs involving cognitive functions and awareness; R76.8 Other specified abnormal immunological findings in serum; R29.898 Other symptoms and signs involving the musculoskeletal system; R53.83 Other fatigue; G35 Multiple sclerosis; M54.50 Low back pain, unspecified; G62.9 Polyneuropathy, unspecified; R51.9 Headache, unspecified
CPT/HCPCS: 72156; 72157; A9577

== ENCOUNTER 2025-06-04 07:19 | Outpatient (CLI) | payer OTHER, SELFPAY ==
--- NOTE | ~2025-06-04 | MMUS_ITS ---
PROCEDURE: US breast biopsy RT w image, MM post biopsy diagnostic RT CLINICAL HISTORY: 40-year-old female with an indeterminate heterogeneous mass in the right breast who presents for ultrasound-guided core needle biopsy procedure. COMPARISON: 05/18/2025 Following informed consent including risks, benefits, and possible complications, the patient was brought to the ultrasound suite. A time-out procedure was performed. A preliminary ultrasound of the right breast was performed, redemonstrating an heterogeneous circumscribed hypoechoic mass at 10:00, 5 cm from the nipple. The patient was prepped and draped in the usual sterile fashion. 1% lidocaine was instilled into the subcutaneous tissues. 1% lidocaine without epinephrine was injected into the deep tissues just inferior to the lesion. Approximately 15cc lidocaine was administered. A small skin manuel was made. Multiple core samples were obtained with a 13-gauge vacuum assisted biopsy needle. A post biopsy metal marker was placed at the biopsy site. Postprocedural mammogram of the right breast in craniocaudal and mediolateral projections reveal the post biopsy coil HydroMark marker in good position. The patient tolerated the procedure well and was without immediate postprocedural complications. IMPRESSION: Successful ultrasound guided biopsy of right breast mass at 10:00. A post biopsy coil HydroMark marker was placed at the biopsy site, which is seen on postprocedural mammogram. The patient tolerated the procedure well without immediate postprocedure complications. The patient was given postprocedural instructions and sent home in stable condition. Biopsy report pending. Reviewed, dictated and finalized at location B. IMPRESSION: Successful ultrasound guided biopsy of right breast mass at 10:00. A post biopsy coil HydroMark marker was placed at the biopsy site, which is see n on postprocedural mammogram. The patient tolerated the procedure well without immediate postprocedure compli cations. The patient was given postprocedural instructions and sent home in sta ble condition. Biopsy report pending.
--- NOTE | 2025-06-04 09:35 | S_PTH ---
PATIENT: Zahida Mcmahon LOC: [facility] U#:[id number] AGE/SX: 40/F ROOM: RE06/04/[address]: Fahad Osorio MD : 1985 BED: DIS: 06/04/2025 SPEC #: [id number] RECD: 06/04/25 12:11 STATUS: KURT REJanusz #: [id number] SUGAR: 06/04/25 09:[address]: Fahad Briones DEPT: [facility] Surgical RECD BY: Jodee Rogers ENTERED: 06/04/25 12:12 SP TYPE: Surgical OTHR DR: Cherise Juarez APRN Tissues: A - Breast Biopsy Procedures: Hematoxylin and Eosin Stain Gross and Microscopic Level 4
== END 2025-06-04 07:20 | disposition home or self-care (01) ==
PROVIDERS: PCP Nurse Practitioner Family; Visit Provider Obstetrics & Gynecology
DX: N63.10 Unspecified lump in the right breast, unspecified quadrant (principal); R92.8 Other abnormal and inconclusive findings on diagnostic imaging of breast
CPT/HCPCS: 19083; 77065; 88305; A4648

== ENCOUNTER 2025-06-08 15:03 | Outpatient (CLI) | payer OTHER, SELFPAY ==
--- OUTSIDE RECORDS SUMMARY | 2025-06-08 15:06 | XMS_ITS | Clinical Summary ---
Author Organization [facility] Address [address] [place] [address] Care Team Providers Care Assembler For Puller Over Hand Name Role Phone Darryl Yo MD Primary Care Provider [phone] Source Comments [facility],non-owned Affiliates and Associated Physician Practices is amultiple site organization consisting of ambulatory clinics and hospital sitesin [place], [place], [place] and [place]. This disclosure is being madepursuant to the Care Everywhere program and may not contain all information available regarding this patient. Last updated 18.[facility] Allergies No known active allergies Medications * Be aware that medications may not be up to date on this document. Alwaysverify current medications with the patient. albuterol HFA (Proventil; Ventolin; Proair) 108 (90 Base) MCG/ACT inhaler INHALE 2 PUFFS BY MOUTH EVERY 4 HOURS NEEDED FOR SHORTNESS OF BREATH OR WHEEZING 4 Active dicyclomine (Bentyl) 10 MG capsule TAKE 1 CAPSULE BY MOUTH TWICE DAILY FOR IRRITABLE BOWEL SYNDROME 4 Active vilazodone (Viibryd) 40 MG tablet Take 1 (one) tablet by mouth once daily 5 Active LORazepam (Ativan) 0.5 MG tablet 5 Active multivitamin daily tablet Take 1 (one) tablet by mouth daily with food Active D3-50 1.25 MG (30685 UT) Take 1 capsule by mouth every 7 days 5 06/06/20 25 Discontinu ed(List Clean-Up) eszopiclone (Lunesta) 2 MG tablet Take 1 (one) tablet by mouth 5 06/06/20 25 Discontinu ed(List Clean-Up) Active Problems Problem Noted Date Diagnosed Date Fibromyalgia 11/07/2024 Assessment & Plan (11/07/2024 5:28 PM BASEBALL SCOUT): Zahida Mcmahon is a 39 year old female referred to [facility] Rheumatology regarding the finding of a low [...] component of allodynia. 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 She was involved [...] issues and opiate induced hyperalgesia (use of half-way opiate/narcotic actually causing more pain rather than [...] without contraindication to use but will defer half-way treatment management decisions to her primary care [...] erythematosus or systemic inflammatory rheumatic disorder by [place] (ACR) diagnostic classification criteria [...] Encounters Date Type Department Care Team Description 06/06/2025 10:00 AM CDT Office Visit [facility] - Rheumatology [facility], [place], [place] [address] No Shea MD Positive REHAN (antinuclear antibody) (Primary Dx); Dry mouth; Dry eyes 06/06/2025 Travel from Last 3 Months Family History Medical History Relation Name Comments CVA Father ALS - Amyotrophic Lateral Sclerosis Paternal Grandfath er Sarcoidosis Sister Relation Name Status Comments Father Paternal Grandfather Sister Social History Tobacco Use Types Packs/Day Years Used Date Smoking Tobacco: Former Cigarettes Smokeless Tobacco: Never Alcohol Use Standard Drinks/Week Comments Not Currently 7 (1 standard drink = 0.6 oz pur e alcohol) PHQ-2 Answer Date Recorded Patient Health Questionnaire-2 Score 2 11/07/2024 Comments No Sex and Gender Information Value Date Recorded Sex Assigned at Not on file Legal Sex Female 6:25 AM BASEBALL SCOUT Gender Identity Not on file Sexual Orientation Not on file Last Filed Vital Signs Vital Sign Reading Time Taken Comments Blood Pressure 120/83 06/06/2025 10:14 AM CDT Pulse 81 06/06/2025 10:14 AM CDT Temperature 36.1 C (97 F) 11/07/2024 3:52 PM BASEBALL SCOUT Respiratory Rate - - Oxygen Saturation 99% 06/06/2025 10:14 AM CDT Inhaled Oxygen Concentration - - Weight 72.6 kg (160 lb) 06/06/2025 10:14 AM CDT Height 157.5 cm (5' 2) 06/06/2025 10:14 AM CDT Body Mass Index 29.26 06/06/2025 10:14 AM CDT Plan of Treatment Health Maintenance Due Date Last Done Comments LIPID TESTING 1985 MAMMOGRAM 1985 HIV SCREENING 1998 HEPATITIS C SCREENING 02/05/2001 DTAP/TDAP/TD VACCINES (1 - Tdap) 2002 HEPATITIS B VACCINE (1 of 3 - 19+ 3-dose series) 2002 HPV VACCINE (1 - 3-dose SCDM series) 2010 SCREENING FOR DIABETES 11/07/2024 COVID-19 VACCINE (3 - 2024-2 6 season) 2025 01/16/2021, 12/26/2020 INFLUENZA VACCINE (#1) 2025 ZOSTER VACCINE (1 of 2) 2033 DEPRESSION SCREENING Completed 11/07/2024 HIB VACCINE Aged Out No longer eligi ble based on patient's age to complete this topic MENINGOCOCCAL (Group B) VACCINE SHARED DECISION-MAKING Aged Out No longer eligible based on patient's age to complete this topic MENINGOCOCCAL GROUPS A/C/Y/W VACCINE Aged Out No longer eligible b ased on patient's age to complete this topic PNEUMOCOCCAL VACCINE Aged Out No long er eligible based on patient's age to complete this topic Insurance [facility] Care Teams Assembler For Puller Over Hand Relationship Specialty Start Date End Date Darryl Yo MD [address] [place] [address] PCP - General 11/04/20
[2025-06-08 16:00] LABS: Creatine Kinase 27 U/L (30-135)
[2025-06-08 16:02] LABS: Hemoglobin A1C 4.6 % (<5.7)
[2025-06-08 16:35] LABS: Thyroid Stimulating Hormone 2.550 uIU/mL (0.465-4.680)
[2025-06-08 17:10] LABS: Vitamin B12 623.0 pg/mL (239-931)
[2025-06-09 08:08] LABS: C-Reactive Protein, Cardiac 1.32 mg/L (0.00-3.00)
== END 2025-06-08 15:04 | disposition home or self-care (01) ==
LOC: ANHLAB 15:04
PROVIDERS: PCP Nurse Practitioner Family; Visit Provider Psychiatry & Neurology Neurology
DX: R20.0 Anesthesia of skin (principal); R20.2 Paresthesia of skin; R41.89 Other symptoms and signs involving cognitive functions and awareness; R76.8 Other specified abnormal immunological findings in serum; R53.83 Other fatigue; G35 Multiple sclerosis; M54.50 Low back pain, unspecified; G62.9 Polyneuropathy, unspecified; R51.9 Headache, unspecified
CPT/HCPCS: 36415; 82550; 82607; 82746; 83036; 83090; 84443; 86141

== ENCOUNTER 2025-06-22 15:02 | Outpatient (CLI) | payer OTHER, SELFPAY | END 2025-06-22 15:03 | disposition home or self-care (01) | LOC: ANHLAB 15:04 | PROVIDERS: PCP Nurse Practitioner Family; Visit Provider Internal Medicine Rheumatology | DX: R68.2 Dry mouth, unspecified (principal) | CPT/HCPCS: 86235 ==

== ENCOUNTER 2025-07-19 08:54 | Outpatient (CLI) | payer OTHER, SELFPAY ==
--- OUTSIDE RECORDS SUMMARY | 2006-12-14 07:49 | XMS_ITS | Continuity of Care Document ---
Author Organization [facility] Address [address] [place] [address] [place] [address] Phone Care Team Providers Care Web Administrator Name Role Phone Granados OD, Kendrick Unavailable Unavailable Procedures Procedure Date Eye Exam Established Pt Advance Directives Directive Yes / No Effective Date File Name No Information Encounters Encounter Description Practice Location Reason(s) For Visit Diagnoses Date Provider Providers Copied on Encounter [facility], [address], [place], [place], [id number], [place] tel:[phone] [facility] No Information 3-200 7 Granados OD Kendrick. [address] , [address], [place], [address], [place]. tel:[phone] Referring Provider: Darryl Yo MD F, [address] [place], [address]. tel:[phone] Family History Family Member Type Diagnosis Age At Onset No Information Payers Payer name Insurance type Covered republican ID Authoriza tion(s) No Information Social History Type Description Quantity Date Captured Comments Sex Female Smoking Status No Information Chief Complaint And Reason For Visit No Information Reason For Referral Reason For Referral No Information History Of Present Illness Encounter Date Complaint History Of Prese nt Illness No Information Functional Status Date Functional Assessmen t No Information Instructions Date Instruction Additional Infor mation No Information Assessments Type Assessment Date No Information Patient Care Teams Name Effective Dates (start - stop) Status Members No Information
--- NOTE | 2025-07-19 09:00 | NEURO_ITS ---
Clinical note The patient 40-year-old with history of paresthesias in both lower limbs and pain in the lower back for past 2 years. On brief neurologic examination no focal muscle wasting or fasciculations are seen in both lower limbs. Summary of findings 1. Left and right peroneal motor distal latencies were within normal limits however amplitudes are moderately decreased on the left and normal on the right side. Conduction velocity within normal limits. There is no focal slowing noted across the fibular head. 2. Left and right tibial motor distal latencies and amplitudes and conduction velocities were within normal limits for 3. Left and right medial plantar and left superficial peroneal and bilateral sural sensory distal latencies and amplitudes within normal limits . 4. Left and right H reflex latencies were mildly prolonged on the left and amplitude was slightly decreased on the left compared to the right side. 5. EMG examination performed on various muscles in lower limbs and related paraspinal muscles. Decreased motor unit recruitment noted in the left extensor digitorum brevis and right abductor hallucis. No denervation changes were seen. Motor unit amplitude and duration and recruitment pattern in other muscles appear within acceptable normal limits. 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 Remainder of the findings are considered within acceptable normal limits. There is no evidence for peripheral neuropathy or L3-S1 radiculopathy. Negative examination does not rule out possibility of these and hence clinical and if necessary radiographic correlation and follow-up study in future may be helpful. Franchesca Candelaria MD, FAAN, FAANEM Neurology / Electrodiagnostic Medicine Nerve Conduction Studies Motor Nerve Results ? Latency Amplitude F-Lat Segment Distance CV Comment Site (ms) (mV) (ms) (cm) (m/s) Left Peroneal (EDB) Motor Ankle 3.9 1.19 Bel Fib Head 9.0 0.88 Bel Fib Head-Ankle 285 56 Pop Fossa 10.5 0.80 Pop Fossa-Bel Fib Head 80 53 Right Peroneal (EDB) Motor Ankle 4.7 3.0 Bel Fib Head 10.0 2.7 Bel Fib Head-Ankle 255 48 Pop Fossa 11.4 2.5 Pop Fossa-Bel Fib Head 80 57 Left Tibial (AHB) Motor Ankle 4.5 12.4 Knee 12.9 10.7 Knee-Ankle 370 44 Right Tibial (AHB) Motor Ankle 3.2 8.9 Knee 10.9 6.7 Knee-Ankle 365 47 Sensory Nerve Results ? Latency (Peak) Amplitude (P-P) Segment Distance CV Comment Site (ms) (?V) (cm) (m/s) Left Medial Plantar (Ortho) Sensory Great Toe-Med Mall 2.8 24 Great Toe-Med Mall 110 39 Right Medial Plantar (Ortho) Sensory Great Toe-Med Mall 2.2 29 Great Toe-Med Mall 95 43 Left Superficial Peroneal Sensory 14 cm-Ankle 2.2 13 14 cm-Ankle 100 45 Left Sural Sensory Calf-Lat Mall 3.0 36 Calf-Lat Mall 120 40 Right Sural Sensory Calf-Lat Mall 2.7 16 Calf-Lat Mall 120 44 H-Reflex Results ? M-Lat H Lat H Peak-Peak Amp M Peak-Peak Amp H-M Lat Site (ms) (ms) mV mV (ms) Left Tibial H-Reflex Pop Fossa 4.8 30.0 3.5 2.4 25.2 Right Tibial H-Reflex Pop Fossa - 27.8 4.5 - - Electromyography ?Side Muscle Nerve Ins Act Fibs Psw Amp Dur Recrt Comment Right BicepsFemS Sciatic Nml Nml Nml Nml Nml Nml Right Semimembranosus Sciatic Nml Nml Nml Nml Nml Nml Right AntTibialis Dp Br Fibular Nml Nml Nml Nml Nml Nml Right Gastroc Tibial Nml Nml Nml Nml Nml Nml Right VastusMed Femoral Nml Nml Nml Nml Nml Nml Right RectFemoris Femoral Nml Nml Nml Nml Nml Nml Right GluteusMax InfGluteal Nml Nml Nml Nml Nml Nml Right TensorFascLat SupGluteal Nml Nml Nml Nml Nml Nml Right L4 Parasp Rami Nml Nml Nml Nml Nml Nml Right AbdHallucis MedPlantar Nml Nml Nml Incr >12ms +1 Right L5 Parasp Rami Nml Nml Nml Nml Nml Nml Left Semimembranosus Sciatic Nml Nml Nml Nml Nml Nml Left AntTibialis Dp Br Fibular Nml Nml Nml Nml Nml Nml Left RectFemoris Femoral Nml Nml Nml Nml Nml Nml Left GluteusMax InfGluteal Nml Nml Nml Nml Nml Nml Left TensorFascLat SupGluteal Nml Nml Nml Nml Nml Nml Left L5 Parasp Rami Nml Nml Nml Nml Nml Nml Left VastusMed Femoral Nml Nml Nml Nml Nml Nml Left L4 Parasp Rami Nml Nml Nml Nml Nml Nml Left BicepsFemS Sciatic Nml Nml Nml Nml Nml Nml Left Fibularis Long Sup Br Fibular Nml Nml Nml Nml Nml Nml Left Ext Dig Brev Dp Br Fibular Nml Nml Nml Nml >12ms +2 Left Gastroc Tibial Nml Nml Nml Nml Nml Nml
--- OUTSIDE RECORDS SUMMARY | 2025-07-19 17:43 | XMS_ITS | Clinical Summary ---
Author Organization [facility] Address [address] [place] [address] Care Team Providers Care Dispatcher Service Or Work Name Role Phone Darryl Yo MD Primary Care Provider [phone] Source Comments [facility],non-owned Affiliates and Associated Physician Practices is amultiple site organization consisting of ambulatory clinics and hospital sitesin [place], [place], [place] and [place]. This disclosure is being madepursuant to the Care Everywhere program and may not contain all information available regarding this patient. Last updated 18.[facility] [facility] Allergies No known active allergies Medications * [...] tablet by mouth daily with food Active Active Problems Problem Noted Date Diagnosed Date Fibromyalgia 11/07/2024 Assessment & Plan (11/07/2024 5:28 PM PROJECT CONSULTANT): Zahida Mcmahon is a 39 year old female referred to [facility] Rheumatology regarding the finding of a low [...] component of allodynia. 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 She was involved [...] issues and opiate induced hyperalgesia (use of termination clerk opiate/narcotic actually causing more pain rather than [...] erythematosus or systemic inflammatory rheumatic disorder by [employer] (ACR) diagnostic classification criteria [...] Description 06/06/2025 10:00 AM CDT Office Visit [facility] - Rheumatology [address] [place] [address] No Shea MD Positive REHAN (antinuclear antibody) [...] on file Legal Sex Female 6:25 AM PROJECT CONSULTANT Gender Identity Not on file Sexual Orientation Not on file Last Filed Vital Signs Vital Sign Reading Time Taken Comments Blood Pressure 120/83 06/06/2025 10:14 AM CDT Pulse 81 06/06/2025 10:14 AM CDT Temperature 36.1 C (97 F) 11/07/2024 3:52 PM PROJECT CONSULTANT Respiratory Rate - - Oxygen Saturation 99% [...] patient's age to complete this topic Insurance [facility] [facility] SELF PAY NO INSURANCE Member Subscriber Plan / Payer (Ef fective for All Dates) Name:Zahida Mcmahon Member ID:Not on file Relation to Subscriber:Not on file Name:ZAHIDA MCMAHON Subscriber ID:Not on file (Home) Address: [address] [address] Payer ID:Not on file Group ID:Not on file Type:Self Pay Address: [place], [place] Care Teams Dispatcher Service Or Work Relationship Specialty Start Date End Date Darryl Yo MD [address] [place] [address] PCP - General 11/04/20
== END 2025-07-19 08:55 | disposition home or self-care (01) ==
PROVIDERS: PCP Nurse Practitioner Family; Visit Provider Psychiatry & Neurology Neurology
DX: G57.32 Lesion of lateral popliteal nerve, left lower limb (principal); R41.89 Other symptoms and signs involving cognitive functions and awareness; M54.50 Low back pain, unspecified; R20.0 Anesthesia of skin; R20.2 Paresthesia of skin; R51.9 Headache, unspecified; G35.D Multiple sclerosis, unspecified; G62.9 Polyneuropathy, unspecified
CPT/HCPCS: 95886; 95910

== ENCOUNTER 2025-08-06 06:34 | Outpatient (CLI) | payer OTHER, SELFPAY ==
--- NOTE | ~2025-08-06 | MR_ITS ---
MR breast BI wo/w con 08/06/2025 8:20 ACTIVITIES CONCIERGE INDICATION: Right breast mass. Previous benign biopsy on 06/04/2025. TECHNIQUE: MRI of the breasts perform using standard protocol pre-and post IV contrast with the following sequences: Axial T2 STIR, axial T1, axial vibrant T1 with fat suppression precontrast and multiphasic postcontrast. 15 cc MultiHance administered intravenously. COMPARISON: Comparison to multiple prior studies sequentially, with oldest reviewed study dated 04/17/2025. FINDINGS: Right breast: On precontrast sequences. There is a heterogeneous mass in the lower outer quadrant of the right breast measuring 3.1 x 1.6 x 1.8 cm. This mass is slightly hyperintense on T2 and T1 hypointense. There is evidence of prior biopsy changes. There is minimal background parenchymal enhancement. No enhancing lesions following contrast administration. No areas of enhancement meeting threshold criteria on CAD analysis. No evidence of signal abnormalities in the axillary or internal mammary node distributions. LEFT BREAST: No signal abnormalities on precontrast sequences. There is minimal background parenchymal enhancement. No enhancing lesions following contrast administration. No areas of enhancement meeting threshold criteria on CAD analysis. No evidence of signal abnormalities in the axillary or internal mammary node distributions.] IMPRESSION: 1: Right breast mass lower outer quadrant measuring 3.1 x 1.6 x 1.8 cm, showing no abnormal enhancement and containing internal biopsy related changes. Imaging appearance is most consistent with postbiopsy changes and likely benign etiology. 2: No suspicious enhancement elsewhere in either breast. BI-RADS CATEGORY 3-PROBABLY BENIGN FINDING RECOMMENDATION: Recommend follow-up targeted right breast ultrasound and/or follow-up MRI in 6 months to document stability. Reviewed, dictated and finalized at location O. VITIES CONCIERGE IMPRESSION: 1: Right breast mass lower outer quadrant measuring 3.1 x 1.6 x 1.8 cm, showin g no abnormal enhancement and containing internal biopsy related changes. Imagi ng appearance is most consistent with postbiopsy changes and likely benign etio logy. 2: No suspicious enhancement elsewhere in either breast. BI-RADS CATEGORY 3-PROBABLY BENIGN FINDING RECOMMENDATION: Recommend follow-up targeted right breast ultrasound and/or fol low-up MRI in 6 months to document stability.
--- OUTSIDE RECORDS SUMMARY | 2025-08-06 06:38 | XMS_ITS | Clinical Summary ---
Author Organization [facility] Address [address] [place] [place] [address] Care Team Providers Care Convertible Power Shovel Operator Name Role Phone Darryl Yo MD Primary Care Provider Source Comments [facility],non-owned Affiliates and Associated Physician Practices is amultiple site organization consisting of ambulatory clinics and hospital sitesin [place], [place], [place] and [place]. This disclosure is being madepursuant to the Care Everywhere program and may not contain all information available regarding this patient. Last updated 18.[facility] Allergies No known active allergies Medications * [...] 11/07/2024 Assessment & Plan (11/07/2024 5:28 PM MOTORCYCLE ENGINE ASSEMBLER): Zahida Mcmahon is a 39 year old female referred to [facility]'s Rheumatology regarding the finding of [...] component of allodynia. 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 She was [...] issues and opiate induced hyperalgesia (use of alf opiate/narcotic actually causing more pain rather than [...] without contraindication to use but will defer alf treatment management decisions to her primary care [...] erythematosus or systemic inflammatory rheumatic disorder by [employer] (ACR) diagnostic classification criteria [...] Description 06/06/2025 10:00 AM CDT Office Visit [facility] - Rheumatology [address] [place] [address] No Shea MD Positive REHAN (antinuclear antibody) [...] on file Legal Sex Female 6:25 AM MOTORCYCLE ENGINE ASSEMBLER Gender Identity Not on file Sexual Orientation Not on file Last Filed Vital Signs Vital Sign Reading Time Taken Comments Blood Pressure 120/83 06/06/2025 10:14 AM CDT Pulse 81 06/06/2025 10:14 AM CDT Temperature 36.1 C (97 F) 11/07/2024 3:52 PM MOTORCYCLE ENGINE ASSEMBLER Respiratory Rate - - Oxygen Saturation 99% [...] patient's age to complete this topic Insurance [facility] [facility] [employer] S[employer]F PAY NO INSURANCE Member Subscriber Plan / Payer (Ef fective for All Dates) Name:Zahida Mcmahon Member ID:Not on file Relation to Subscriber:Not on file Name:ZAHIDA MCMAHON Subscriber ID:Not on file (Home) Address: [address] [address] Payer ID:Not on file Group ID:Not on file Type:Self Pay Address: [place], [place] Care Teams Convertible Power Shovel Operator Relationship Specialty Start Date End Date Darryl Yo MD [address] [place] [address] PCP - General 11/04/20
== END 2025-08-06 06:35 | disposition home or self-care (01) ==
PROVIDERS: PCP Nurse Practitioner Family; Visit Provider Surgery
DX: N63.11 Unspecified lump in the right breast, upper outer quadrant (principal); R92.8 Other abnormal and inconclusive findings on diagnostic imaging of breast
CPT/HCPCS: 77049; A9577; C8908

== ENCOUNTER 2025-08-16 08:30 | Outpatient (CLI) | payer OTHER, SELFPAY ==
--- OUTSIDE RECORDS SUMMARY | 2025-08-16 08:48 | XMS_ITS | Clinical Summary ---
Author Organization [facility] Address [address] [place] [address] Care Team Providers Care Lead Network Engineer Name Role Phone Darryl Yo MD Primary Care Provider [phone] Source Comments [facility],non-owned Affiliates and Associated Physician Practices is amultiple site organization consisting of ambulatory clinics and hospital sitesin [place], [place], [place] and [place]. This disclosure is being madepursuant to the Care Everywhere program and may not contain all information available regarding this patient. Last updated 18.[facility] Allergies No known active allergies Medications * [...] 11/07/2024 Assessment & Plan (11/07/2024 5:28 PM SNOW MAKER): Zahida Mcmahon is a 39 year old female referred to [facility]'s Rheumatology regarding the finding of [...] component of allodynia. 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 She was [...] issues and opiate induced hyperalgesia (use of credit control administrator opiate/narcotic actually causing more pain rather than [...] without contraindication to use but will defer credit control administrator treatment management decisions to her primary care [...] erythematosus or systemic inflammatory rheumatic disorder by [place] [employer] (ACR) diagnostic classification criteria [...] Description 06/06/2025 10:00 AM CDT Office Visit [facility] - Rheumatology [address] [place] [address] No Shea MD Positive REHAN (antinuclear antibody) [...] on file Legal Sex Female 6:25 AM SNOW MAKER Gender Identity Not on file Sexual Orientation Not on file Last Filed Vital Signs Vital Sign Reading Time Taken Comments Blood Pressure 120/83 06/06/2025 10:14 AM CDT Pulse 81 06/06/2025 10:14 AM CDT Temperature 36.1 C (97 F) 11/07/2024 3:52 PM SNOW MAKER Respiratory Rate - - Oxygen Saturation 99% [...] patient's age to complete this topic Insurance [facility] [employer] [employer] S[employer]F [employer] NO INSURANCE Member Subscriber Plan / Payer (Ef fective for All Dates) Name:Zahida Mcmahon Member ID:Not on file Relation to Subscriber:Not on file Name:ZAHIDA MCMAHON Subscriber ID:Not on file (Home) Address: [address] [address] Payer ID:Not on file Group ID:Not on file Type:Self Pay Address: [place], [place] Care Teams Lead Network Engineer Relationship Specialty Start Date End Date Darryl Yo MD [address] [place] [address] PCP - General 11/04/20
--- NOTE | 2025-08-16 09:00 | NEURO_ITS ---
Clinical note: Patient is 40-year-old with history of paresthesias in both hands and pain in the shoulder and neck. No history of diabetes mellitus or major trauma. A brief neurological examination did not show any focal muscle wasting or fasciculations. the results of the EMG nerve can study are shown below. Summary of findings: 1. Left and right median motor distal latencies, amplitudes and conduction velocities were within normal limits. 2. Left and right Ulnar motor distal latencies and amplitudes and conduction velocity from elbow to wrist were within normal limits. There is mild focal slowing across the elbow on the left side. Compared to conduction velocity from below elbow to wrist the conduction velocity on the right side across elbow was minimally decreased however an ulnar motor inching study was performed which shows mild focal slowing in the segments across the elbow. 3. Left and right median and ulnar palmar and digital sensory distal latency amplitude and conduction velocity within normal limits. bilateral radial sensory distal latencies amplitudes within normal limits. 4. EMG examination performed using monopolar needle electrode. Various muscles examined in both upper limbs in the C5-T1 distribution. No vision changes were seen. Motor unit amplitude, duration and recruitment pattern were within normal limits. 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 However no denervation changes were seen in the above ulnar nerve innervated muscles in 4 arm or hand at this time. remainder of the examination findings were within acceptable normal limits. Franchesca Candelaria MD, FAAN, FAANEM Neurology and electrodiagnostic Medicine Nerve Conduction Studies Motor Nerve Results ? Latency Amplitude F-Lat Segment Distance CV Comment Site (ms) (mV) (ms) (cm) (m/s) Left Median (APB) Motor? Wrist 3.5 8.1 Elbow 7.3 9.1 Elbow-Wrist 190 50 Right Median (APB) Motor Wrist 3.8 7.5 Elbow 7.3 7.7 Elbow-Wrist 205 59 Left Ulnar (ADM) Motor Wrist 3.0 9.7 Bel Elbow 6.0 8.4 Bel Elbow-Wrist 175 58 Abv Elbow 7.8 8.1 Abv Elbow-Bel Elbow 75 42 Right Ulnar (ADM) Motor Wrist 3.3 8.1 Bel Elbow 5.9 8.1 Bel Elbow-Wrist 180 69 Abv Elbow 7.2 8.1 Abv Elbow-Bel Elbow 65 50 Right Ulnar-Inching (ADM) Motor Wrist 3.3 8.1 Elb-6 5.6 8.0 Elb-4 5.9 8.3 Elb-2 6.5 8.3 Elbow 7.1 8.2 Sensory Nerve Results ? Latency (Peak) Amplitude (P-P) Segment Distance CV Comment Site (ms) (?V) (cm) (m/s) Left Median DigIII Sensory Wrist-Dig III 3.3 69 Wrist-Dig III 130 39 Right Median DigIII Sensory Wrist-Dig III 3.2 51 Wrist-Dig III 125 39 Left Median-Ulnar Palmar Sensory ? Median Palm-Wrist 2.0 103 Palm-Wrist 80 40 ? Ulnar Palm-Wrist 2.0 50 Palm-Wrist 80 40 Right Median-Ulnar Palmar Sensory ? Median Palm-Wrist 2.1 106 Palm-Wrist 80 38 ? Ulnar Palm-Wrist 2.2 47 Palm-Wrist 80 36 Left Radial Sensory Forearm-Wrist 1.80 80 Forearm-Wrist 100 56 Right Radial Sensory Forearm-Wrist 1.83 77 Forearm-Wrist 100 55 Left Ulnar Sensory Wrist-Dig V 3.2 93 Wrist-Dig V 130 41 Right Ulnar Sensory Wrist-Dig V 2.8 97 Wrist-Dig V 125 45 Electromyography ?Side Muscle Nerve Ins Act Fibs Psw Amp Dur Recrt Comment Right Deltoid Axillary Nml Nml Nml Nml Nml Nml Right Biceps Musculocut Nml Nml Nml Nml Nml Nml Right Triceps Radial Nml Nml Nml Nml Nml Nml Right Ext Digitorum Radial (Post Int) Nml Nml Nml Nml Nml Nml Right ExtCarUln Radial (Post Int) Nml Nml Nml Nml Nml Nml Right Ext Indicis Radial (Post Int) Nml Nml Nml Nml Nml Nml Right FlexPolLong Median (Ant Int) Nml Nml Nml Nml Nml Nml Right 1stDorInt Ulnar Nml Nml Nml Nml Nml Nml Right Abd Poll Brev Median Nml Nml Nml Nml Nml Nml Right FlexDigProf Ulnar Nml Nml Nml Nml Nml Nml Right FlexCarRad Median Nml Nml Nml Nml Nml Nml Left Deltoid Axillary Nml Nml Nml Nml Nml Nml Left Biceps Musculocut Nml Nml Nml Nml Nml Nml Left Triceps Radial Nml Nml Nml Nml Nml Nml Left Ext Digitorum Radial (Post Int) Nml Nml Nml Nml Nml Nml Left ExtCarUln Radial (Post Int) Nml Nml Nml Nml Nml Nml Left Ext Indicis Radial (Post Int) Nml Nml Nml Nml Nml Nml Left FlexPolLong Median (Ant Int) Nml Nml Nml Nml Nml Nml Left 1stDorInt Ulnar Nml Nml Nml Nml Nml Nml Left Abd Poll Brev Median Nml Nml Nml Nml Nml Nml Left FlexDigProf Ulnar Nml Nml Nml Nml Nml Nml Left FlexCarRad Median Nml Nml Nml Nml Nml Nml
== END 2025-08-16 08:31 | disposition home or self-care (01) ==
PROVIDERS: PCP Nurse Practitioner Family; Visit Provider Psychiatry & Neurology Neurology
DX: G56.23 Lesion of ulnar nerve, bilateral upper limbs (principal); R51.9 Headache, unspecified; G62.9 Polyneuropathy, unspecified; R41.89 Other symptoms and signs involving cognitive functions and awareness; M54.50 Low back pain, unspecified
CPT/HCPCS: 95886; 95910